=== PATIENT | female | born 1940 | race Caucasian/White ===

== ENCOUNTER → 2016-12-23 | Outpatient (CLI) | payer MEDICARE, OTHER ==
--- NOTE | 2016-12-23 13:14 | BD ---
EXAMINATION TYPE: MG DEXA axial skeleton. DATE OF EXAM: 12/23/2016 11:26 AM COMPARISON: NONE CLINICAL HISTORY: Height: 63 Weight: 160.6 FRAX RISK QUESTIONS: Alcohol (3 or more units per day): NO Family History (Parent hip fracture): NO Glucocorticoids (More than 3mos): NO (Ex: prednisone, prednisolone, methylprednisolone, dexamethasone, and hydrocortisone). History of Fracture in Adulthood: YES Secondary Osteoporosis: 1. Type 1 Diabetes: NO 2. Hyperthyroidism: NO 3. Menopause before 45: NO 4. Malnutrition: NO 5. Chronic liver disease: NO Rheumatoid Arthritis: NO Current Tobacco Use: NO RISK FACTORS HISTORY OF: Hip Fracture (Right/Left): NO Spine Fracture: NO History of Wrist Fracture: NO Surgery to Spine/Hip(right/left)/Wrist (right/left): NO Family History of Osteoporosis: YES MOTHER Active: YES Diet low in dairy products/other sources of calcium: NO Postmenopausal woman: AGE 54 Lost more than 2 inches in height since high school: YES Frequent falls: NO Adrenal Insufficiency: NO MEDICATIONS: BLOOD PRESSURE, ZOCOR, CELEBREX, PRILOSEC Additional History: EXAM MEASUREMENTS: Bone mineral densitometry was performed using the [employer] System. Bone mineral density as measured about the Lumbar spine is: ----- L1-L4(G/cm2): 1.427 T Score Values are as follows: ----- L2: 2.1 ----- L3: 1.0 ----- L4: 1.7 ----- L1-L4: 2.1 Bone mineral density has: DECREASED -1.1 % since study of: 01.24.2014 Bone mineral density about the R hip (g/cm2): 0.881 Bone mineral density about the L hip (g/cm2): 0.845 T Score values are as follows: -----R Neck: -1.1 -----L Neck: -1.4 -----R Intertrochanter: -1.0 -----L Intertrochanter: -0.9 Bone mineral density has: INCREASED 0.9 % since study of: 01.24.2014 IMPRESSION: Osteopenia (T Score between -2.5 and -1 as noted by T score values There is slightly increased risk of fracture and the patient may be considered for treatment. Re-Screen 1-2 years. Bone density has improved 0.9% from 2014 within the bilateral hips. Bone density has diminished 1.1% within the lumbar spine from 2014 NOTE: T-SCORE=SD OF THE YOUNG ADULT MEAN.
--- NOTE | 2016-12-26 09:12 | MM ---
Reason for exam: screening (asymptomatic). Last mammogram was performed 1 year and 4 months ago. History: Patient is postmenopausal, has history of endometrial cancer at age 60, and had first child at age 33. Family history of breast cancer in mother at age 70. Physical Findings: A clinical breast exam by your physician is recommended on an annual basis and results should be correlated with mammographic findings. MG Screening Mammo w CAD Bilateral CC and MLO view(s) were taken. Prior study comparison: August 20, 2015, bilateral MG screening mammo w CAD. May 02, 2014, bilateral MG screening mammo w CAD. There are scattered fibroglandular densities. There is chronic nodularity in the left breast. No significant changes when compared with prior studies. ASSESSMENT: Benign, BI-RAD 2 RECOMMENDATION: Routine screening mammogram of both breasts in 1 year.
== END | disposition home or self-care (01) ==
LOC: RADMAMWWP 10:42
PROVIDERS: ATTEND Obstetrics & Gynecology
DX: Z12.31 Encounter for screening mammogram for malignant neoplasm of breast (principal); M85.80 Other specified disorders of bone density and structure, unspecified site
CPT/HCPCS: 77080; G0202

== ENCOUNTER → 2017-09-21 | Outpatient (CLI) | payer MEDICARE, OTHER ==
[2017-09-21 09:52] LABS: ALT 40 U/L (9-52); AST 30 U/L (14-36); Alkaline Phosphatase 68 U/L (38-126); Anion Gap 10 mmol/L; Blood Urea Nitrogen 23 mg/dL (7-17); Calcium 10.3 mg/dL (8.4-10.2); Carbon Dioxide 26 mmol/L (22-30); Chloride 102 mmol/L (98-107); Glucose 109 mg/dL (74-99); Non-African American GFR(MDRD) 52 (>60 ml/min/1.73 sqM); Potassium 4.3 mmol/L (3.5-5.1); Sodium 138 mmol/L (137-145); Total Bilirubin 0.3 mg/dL (0.2-1.3); Total Protein 7.7 g/dL (6.3-8.2)
== END | disposition home or self-care (01) ==
LOC: LABWHC1 08:53
PROVIDERS: ATTEND Internal Medicine Endocrinology, Diabetes & Metabolism
DX: E05.90 Thyrotoxicosis, unspecified without thyrotoxic crisis or storm (principal); E21.2 Other hyperparathyroidism; Z86.39 Personal history of other endocrine, nutritional and metabolic disease
CPT/HCPCS: 36415; 80053; 82306; 83970; 84439; 84443; 84445; 84480

== ENCOUNTER → 2017-09-27 | Outpatient (CLI) | payer MEDICARE, OTHER ==
--- NOTE | 2017-09-28 10:42 | NM ---
EXAMINATION TYPE: NM thyroid image w uptake DATE OF EXAM: 09/28/2017 COMPARISON: 09/04/2017 and 01/31/2014 thyroid ultrasound. Parathyroid scan dated 01/31/2014. HISTORY: 1.4 cm solid right thyroid nodule on the exam of 09/04/2017 similar in size to the prior exa m of 01/31/2014. TECHNIQUE: Thyroid iodine uptake is calculated and images performed after the oral administration of 314 uCi 1-123 Capsule. FINDINGS: There is normal distribution of activity throughout the gland. The 4 hour iodine uptake is calculated at 2% (normal range 8-14%). The 24-hour iodine uptake is calculated at 3.1% (normal range 15-35%). No areas of focal areas of photopenia or increased uptake are appreciated. Glandular uptak e is homogeneous. IMPRESSION: Diffusely abnormal decreased thyroid uptake at both 4 and 24 hours relating to either hyp othyroidism, thyroiditis, or infarction is hormone depression. Correlate with medication use.
== END | disposition home or self-care (01) ==
LOC: RADNMMAIN 08:34
PROVIDERS: ATTEND Internal Medicine Endocrinology, Diabetes & Metabolism
DX: E05.90 Thyrotoxicosis, unspecified without thyrotoxic crisis or storm (principal)
CPT/HCPCS: 78014; A9516

== ENCOUNTER → 2017-10-09 | Outpatient (CLI) | payer MEDICARE, OTHER | END | disposition home or self-care (01) | LOC: LABWHC1 14:31 | PROVIDERS: ATTEND Internal Medicine Endocrinology, Diabetes & Metabolism | DX: E05.90 Thyrotoxicosis, unspecified without thyrotoxic crisis or storm (principal) | CPT/HCPCS: 36415; 84439; 84443; 84480 ==

== ENCOUNTER → 2017-12-28 | Outpatient (CLI) | payer MEDICARE, OTHER ==
[2017-12-28 16:16] LABS: ALT 25 U/L (9-52); AST 25 U/L (14-36); Albumin 4.3 g/dL (3.5-5.0); Alkaline Phosphatase 78 U/L (38-126); Anion Gap 12 mmol/L; Blood Urea Nitrogen 20 mg/dL (7-17); Calcium 10.2 mg/dL (8.4-10.2); Carbon Dioxide 28 mmol/L (22-30); Chloride 97 mmol/L (98-107); Glucose 128 mg/dL (74-99); Potassium 3.9 mmol/L (3.5-5.1); Sodium 137 mmol/L (137-145); Total Bilirubin 0.4 mg/dL (0.2-1.3); Total Protein 7.5 g/dL (6.3-8.2)
[2017-12-28 16:32] LABS: T4, Free (Free Thyroxine) 1.05 ng/dL (0.78-2.19)
[2017-12-29 01:02] LABS: Parathyroid Hormone Intact 83.9 pg/mL (14.0-72.0)
== END | disposition home or self-care (01) ==
LOC: LABWHC1 15:33
PROVIDERS: ATTEND Internal Medicine Endocrinology, Diabetes & Metabolism
DX: E05.90 Thyrotoxicosis, unspecified without thyrotoxic crisis or storm (principal); Z86.39 Personal history of other endocrine, nutritional and metabolic disease
CPT/HCPCS: 36415; 80053; 82306; 83970; 84439; 84443; 84480; 86376

== ENCOUNTER → 2018-04-26 | Outpatient (CLI) | payer MEDICARE, OTHER ==
--- NOTE | 2018-04-30 08:05 | MM ---
Reason for exam: screening (asymptomatic). Last mammogram was performed 1 year and 4 months ago. History: Patient is postmenopausal, has history of endometrial cancer at age 60, and had first child at age 33. Family history of breast cancer in mother at age 70. Physical Findings: A clinical breast exam by your physician is recommended on an annual basis and results should be correlated with mammographic findings. MG 3D Screening Mammo W/Cad Bilateral CC and MLO view(s) were taken. Prior study comparison: December 23, 2016, bilateral MG screening mammo w CAD. August 20, 2015, bilateral MG screening mammo w CAD. There are scattered fibroglandular densities. There is chronic nodularity in the left breast. Scattered bilateral densities on tomosynthesis appear negative. This finding is changed when compared with previous exams. ASSESSMENT: Probably benign, BI-RAD 3 RECOMMENDATION: Follow-up diagnostic mammogram of both breasts in 6 months.
== END | disposition home or self-care (01) ==
LOC: RADMAMWWP 12:58
PROVIDERS: ATTEND Obstetrics & Gynecology
DX: Z12.31 Encounter for screening mammogram for malignant neoplasm of breast (principal)
CPT/HCPCS: 77063; 77067

== ENCOUNTER → 2018-09-01 | Outpatient (CLI) | payer MEDICARE, OTHER ==
[2018-09-01 09:38] LABS: Albumin 3.9 g/dL (3.5-5.0); Calcium 10.2 mg/dL (8.4-10.2); Potassium 4.1 mmol/L (3.5-5.1); Total Bilirubin 0.4 mg/dL (0.2-1.3); Total Protein 7.1 g/dL (6.3-8.2)
[2018-09-01 09:54] LABS: T4, Free (Free Thyroxine) 1.18 ng/dL (0.78-2.19)
[2018-09-01 17:04] LABS: Vitamin D 25 Hydroxy 45.8 ng/mL (30.0-100.0)
[2018-09-01 17:12] LABS: Parathyroid Hormone Intact 113.5 pg/mL (14.0-72.0)
== END | disposition home or self-care (01) ==
LOC: LABWHC1 08:19
PROVIDERS: ATTEND Internal Medicine Endocrinology, Diabetes & Metabolism
DX: E05.90 Thyrotoxicosis, unspecified without thyrotoxic crisis or storm (principal); Z86.39 Personal history of other endocrine, nutritional and metabolic disease
CPT/HCPCS: 36415; 80053; 82306; 83970; 84439; 84443

== ENCOUNTER → 2018-10-29 | Outpatient (CLI) | payer MEDICARE, OTHER ==
--- NOTE | 2018-10-30 07:40 | MM ---
Reason for exam: follow-up at short interval from prior study. Last mammogram was performed 6 months ago. History: Patient is postmenopausal, has history of endometrial cancer at age 60, and had first child at age 33. Family history of breast cancer in mother at age 70. Physical Findings: Nurse did not find any significant physical abnormalities on exam. MG 3D Diag Mammo W/Cad [facility] Bilateral CC and MLO view(s) were taken. Prior study comparison: April 26, 2018, bilateral MG 3d screening mammo w/cad. December 23, 2016, bilateral MG screening mammo w CAD. There are scattered fibroglandular densities. Previous mammotome biopsy in the left breast. No significant new findings when compared with previous films. These results were verbally communicated with the patient and result sheet given to the patient on 10/29/18. ASSESSMENT: Benign, BI-RAD 2 RECOMMENDATION: Routine screening mammogram of both breasts in 1 year.
== END | disposition home or self-care (01) ==
LOC: RADMAMWWP 14:17
PROVIDERS: ATTEND Obstetrics & Gynecology
DX: R92.8 Other abnormal and inconclusive findings on diagnostic imaging of breast (principal)
CPT/HCPCS: 77066; G0279; 77062

== ENCOUNTER → 2019-02-15 | Outpatient (CLI) | payer MEDICARE ==
[2019-02-15 14:20] LABS: Albumin 4.2 g/dL (3.5-5.0); Calcium 10.8 mg/dL (8.4-10.2); Potassium 3.8 mmol/L (3.5-5.1); Total Bilirubin 0.5 mg/dL (0.2-1.3); Total Protein 7.4 g/dL (6.3-8.2)
[2019-02-15 14:33] LABS: T4, Free (Free Thyroxine) 1.31 ng/dL (0.78-2.19)
--- NOTE | 2019-02-15 15:05 | US ---
EXAMINATION TYPE: US thyroid st tissue head/neck DATE OF EXAM: 02/15/2019 COMPARISON: Previous exam 09/04/2017 CLINICAL HISTORY: E04.1 NONTOXIC SINGLE THYROID NODULE. Follow up nodule. No thyroid meds. GLAND SIZE: Right Lobe: 3.7 x 1.7 x 1.9 cm Overall Parenchyma: homogenous Left Lobe: 4.8 x 1.5 x 1.1 cm Overall Parenchyma: homogeneous Isthmus Thickness: 0.7 cm NODULES RIGHT: # of nodules measured on right: 1. 1.4 x 1.2 x 1.2 cm isoechoic solid nodule at the mid pole with well-defined margins. This nodul e is tall as wide and shows intranodular vascularity. Prior size: 1.4 x 1.2 x 1.1 cm LEFT: # of nodules measured on left: 0 ISTHMUS: # of nodules measured in the isthmus: 1 1. 0.5 X 0.5 x 0.4 cm hypoechoic nodule at the left lateral pole with well-defined margins. This no dule is wider than tall and shows no intranodular vascularity. Prior size: Not on previous Bilateral neck scanned, no evidence of lymphadenopathy. Cystic appearing lesion visualized posterior to left thyroid lobe = 0.6 x 0.4 x 0.4 cm IMPRESSION: Dominant nodule is stable in size. Subcentimeter foci noted have developed in the interval.
[2019-02-15 18:56] LABS: Parathyroid Hormone Intact 49.4 pg/mL (14.0-72.0)
[2019-02-15 19:05] LABS: Vitamin D 25 Hydroxy 40.5 ng/mL (30.0-100.0)
== END ==
LOC: RADUSWWP 11:51
PROVIDERS: ATTEND Internal Medicine Endocrinology, Diabetes & Metabolism
DX: E04.1 Nontoxic single thyroid nodule (principal); E05.90 Thyrotoxicosis, unspecified without thyrotoxic crisis or storm; Z86.39 Personal history of other endocrine, nutritional and metabolic disease
CPT/HCPCS: 76536; 80053; 82306; 83970; 84439; 84443; 84480

== ENCOUNTER → 2019-08-01 | Outpatient (CLI) | payer MEDICARE ==
[2019-08-01 17:41] LABS: African American GFR (CKD) 55.3 (60.0-200.0); Albumin 4.4 g/dL (3.80-4.90); Anion Gap 8.7 mmol/L (4.00-12.00); BUN/Creat Ratio 16.36 Ratio (12.00-20.00); Calcium 10.2 mg/dL (8.7-10.3); Carbon Dioxide 27.3 mmol/L (21.6-31.8); Globulin 2.2 g/dL (1.6-3.3); Potassium 3.7 mmol/L (3.5-5.5); Total Bilirubin 0.4 mg/dL (0.2-1.2); Total Protein 6.6 g/dL (6.2-8.2)
[2019-08-01 17:44] LABS: Vitamin D 25 Hydroxy 32.6 ng/mL (30.0-100.0)
[2019-08-01 17:49] LABS: T4, Free (Free Thyroxine) 1.3 ng/dL (0.80-1.80)
== END | disposition home or self-care (01) ==
LOC: LABWHC1 09:45
PROVIDERS: ATTEND Internal Medicine Endocrinology, Diabetes & Metabolism
DX: E04.2 Nontoxic multinodular goiter (principal); E83.52 Hypercalcemia; Z86.39 Personal history of other endocrine, nutritional and metabolic disease
CPT/HCPCS: 36415; 80053; 82306; 83970; 84439; 84443

== ENCOUNTER → 2019-12-19 | Outpatient (CLI) | payer MEDICARE ==
--- NOTE | 2019-12-19 11:00 | BD ---
EXAMINATION TYPE: Axial Bone Density DATE OF EXAM: 12/19/2019 COMPARISON: 12.23.2016 CLINICAL HISTORY: 79 YR OLD FEMALE.....ICD-10 CODE: M89.9 DISORDER OF BONE Height: 61.9 Weight: 160 FRAX RISK QUESTIONS: History of Fracture in Adulthood: YES HYPERPARATHYROID, YES RISK FACTORS HISTORY OF: HX OF FINGER FX...> 49 YRS OLD Family History of Osteoporosis: YES, MOTHER NO HIP FX Postmenopausal woman: YES, AT AGE 54 Lost more than 2 inches in height since high school: Hyperparathyroidism: YES, REMOVER 3.5 OF THE 2013 Adrenal Insufficiency: NO MEDICATIONS: Additional Medications: BP MEDS, REFLUX MEDS, STATIN FOR CHOLESTEROL, VIT D Additional History: REFLUX, CHOLESTEROL, HYPERTENSION, SCOLIOSIS, BILAT TOTAL KNEES, ARTHRITIS EXAM MEASUREMENTS: Bone mineral densitometry was performed using the [employer] System. Bone mineral density as measured about the Lumbar spine is: ----- L1-L4(G/cm2): 1.726 T Score Values are as follows: ----- L1: 6.2 ----- L2: 3.6 ----- L3: 3.2 ----- L4: 5.0 ----- L1-L4: 4.6 Bone mineral density has: Increased 21.8% since study of: 12.23.2016 Bone mineral density about the R hip (g/cm2): 0.928 Bone mineral density about the L hip (g/cm2): 0.939 T Score values are as follows: -----R Neck: -1.1 -----L Neck: -1.2 -----R Total: -0.6 -----L Total: -0.5 Bone mineral density has: Increased 2.6% since study of: 12.23.2016 FRAX%s: THERE IS A 17.6% CHANCE FOR A MAJOR OSTEOPOROTIC FX AND A 3.2% FOR HIP.....PROBABILITY FOR FX IN 10 YRS TIME IMPRESSION: Osteopenia (T Score between -2.5 and -1). There is slightly increased risk of fracture and the patient may be considered for treatment. Re-Screen 2-5 years. NOTE: T-SCORE=SD OF THE YOUNG ADULT MEAN.
--- NOTE | 2019-12-20 11:45 | MM ---
Reason for exam: screening (asymptomatic). Last mammogram was performed 1 year and 2 months ago. History: Patient is postmenopausal, has history of endometrial cancer at age 60, and had first child at age 33. Family history of breast cancer in mother at age 70. Physical Findings: A clinical breast exam by your physician is recommended on an annual basis and results should be correlated with mammographic findings. MG 3D Screening Mammo W/Cad Bilateral CC and MLO view(s) were taken. Prior study comparison: October 29, 2018, bilateral MG 3d diag mammo w/cad [facility]. April 26, 2018, bilateral MG 3d screening mammo w/cad. The breast tissue is heterogeneously dense. This may lower the sensitivity of mammography. Benign appearing bilateral calcifications. There is chronic nodularity in the left breast. No significant changes when compared with prior studies. ASSESSMENT: Benign, BI-RAD 2 RECOMMENDATION: Routine screening mammogram of both breasts in 1 year.
== END | disposition home or self-care (01) ==
LOC: RADMAMWWP 08:09
PROVIDERS: ATTEND Obstetrics & Gynecology
DX: Z12.31 Encounter for screening mammogram for malignant neoplasm of breast (principal); M85.80 Other specified disorders of bone density and structure, unspecified site
CPT/HCPCS: 77063; 77067; 77080

== ENCOUNTER 2020-04-25 08:11 | Emergency (ER) | payer MEDICARE ==
[2020-04-25 08:19] VITALS: BP 137/83; PULSE 89; RESP 18; TEMP 98.9
--- NOTE | 2020-04-25 08:35 | ED ---
General Adult HPI - General Chief complaint: Skin/Abscess/Foreign Body Stated complaint: Rash Time Seen by Provider: 04/25/20 08:15 Source: patient, RN notes reviewed, old records reviewed Mode of arrival: ambulatory Limitations: no limitations - History of Present Illness Initial comments: 79-year-old female presents for evaluation of rash which began 2 days ago. Painful rash on the right buttock and posterior thigh. Patient denies fever or chills. She's had some mild nausea, headache which has resolved with Tylenol. Patient is otherwise quite healthy. At the time my evaluation she denies headache. She states the pain is tolerable she had taken a [place] yesterday evening which she had left over for some chronic back pain issues. She has an appointment to see her primary care physician in 2 days. - Related Data Previous Rx's Medication Instructions Recorded valACYclovir HCL [Valtrex] 1,000 mg PO Q12HR #14 tab 04/25/20 Allergies Allergy/AdvReac Type Severity Reaction Status Date / Time No Known Allergies Allergy Verified 04/25/20 08:19 Review of Systems ROS Statement: Those systems with pertinent positive or pertinent negative responses have been documented in the HPI. ROS Other: All systems not noted in ROS Statement are negative. Past Medical History Past Medical History: GERD/Reflux, Hypertension Additional Past Medical History / Comment(s): "parathyroid condition" History of Any Multi-Drug Resistant Organisms: None Reported Past Surgical History: Cholecystectomy, Hysterectomy, Joint Replacement Additional Past Surgical History / Comment(s): bilateral knees, partial removal of parathyroid Past Psychological History: Anxiety, Depression Smoking Status: Never smoker Past Alcohol Use History: None Reported Past Drug Use History: None Reported General Exam Limitations: no limitations General appearance: alert, in no apparent distress Head exam: Present: atraumatic, normocephalic Eye exam: Present: normal appearance, PERRL ENT exam: Present: normal exam, mucous membranes moist Neck exam: Present: normal inspection, full ROM. Absent: tenderness, meningismus Respiratory exam: Present: normal lung sounds bilaterally. Absent: respiratory distress, wheezes Cardiovascular Exam: Present: regular rate, normal rhythm GI/Abdominal exam: Present: soft. Absent: distended, tenderness, guarding, rebound Extremities exam: Present: other (Vesicular rash on the right gluteal and mid posterior thigh consistent with herpes zoster. Does not cross midline.) Course Vital Signs 04/25/20 08:13 Temperature 98.9 F Pulse Rate 89 Respiratory 18 Rate Blood Pressure 137/83 O2 Sat by Pulse 96 Oximetry Medical Decision Making - Medical Decision Making 79-year-old with rash consistent with herpes zoster dermatomal distribution. Mild prodrome of headache and nausea, no vomiting, no fever. Patient is well- appearing without additional complaints the time my evaluation. She started on Valtrex, she has [place] at home for pain. She has an appointment with her primary care physician in 48 hours. Disposition Clinical Impression: Herpes zoster Disposition: HOME SELF-CARE Condition: Good Instructions (If sedation given, give patient instructions): Shingles (ED) Prescriptions: valACYclovir HCL [Valtrex] 1,000 mg PO Q12HR #14 tab Is patient prescribed a controlled substance at d/c from ED?: No Referrals: Ingrid Echols MD [Primary Care Provider] - 1-2 days Time of Disposition: 08:35
== END 2020-04-25 08:45 | disposition home or self-care (01) ==
LOC: EC 08:11
DX: B02.9 Zoster without complications (principal); R51 Headache; R11.0 Nausea; Z96.9 Presence of functional implant, unspecified
CPT/HCPCS: 99283

== ENCOUNTER → 2020-04-27 | Outpatient (CLI) | payer MEDICARE ==
--- NOTE | 2020-04-27 15:03 | CT ---
EXAMINATION TYPE: CT brain wo con DATE OF EXAM: 04/27/2020 COMPARISON: 12/03/2011 HISTORY: 79-year-old female Unsteady gait and confusion. TECHNIQUE: Examination was done in axial plane without intravenous contrast. Coronal and sagittal r econstructions performed. CT DLP: 1108.4 mGycm Automated exposure control for dose reduction was used. FINDINGS: There is no evidence of acute intracranial hemorrhage, acute ischemic changes, mass, mass-effect, or extra-axial fluid collection. There is no effacement of cerebral sulci or basal subarachnoid cister ns. There is no hydrocephalus. There is no midline shift. [place]-white matter distinction is preserv ed. Severe confluent white matter hypodensities in both cerebral hemispheres, progressed from 2011. Ather osclerotic calcifications within the bilateral carotid siphons. 5 mm nodular prominence at the distal M1 segment left MCA. Paranasal sinuses and mastoid air cells well pneumatized. Orbits and globes are intact. IMPRESSION: 1. Severe confluent burden of chronic small vessel ischemic disease. No acute intracranial abnormalit y seen. 2. A 5 mm nodular prominence at the distal M1 segment left MCA. Nonemergent follow-up MR angiography [place] recommended to exclude intracranial aneurysm.
--- NOTE | 2020-04-28 07:29 | US ---
EXAMINATION TYPE: US carotid duplex BILAT DATE OF EXAM: 04/27/2020 COMPARISON: CLINICAL HISTORY: R41.0 CONFUSION,R51 HEADACHE. EXAM MEASUREMENTS: RIGHT: Peak Systolic Velocity (PSV) cm/sec ----- Right CCA: 56.4 ----- Right ICA: 59.8 ----- Right ECA: 94.7 ICA/CCA ratio: 1.1 RIGHT: End Diastole cm/sec ----- Right CCA: 10.1 ----- Right ICA: 13.6 ----- Right ECA: 11.4 LEFT: Peak Systolic Velocity (PSV) cm/sec ----- Left CCA: 62.5 ----- Left ICA: 49.4 ----- Left ECA: 64.2 ICA/CCA ratio: 0.8 LEFT: End Diastole cm/sec ----- Left CCA: 13.6 ----- Left ICA: 13.6 ----- Left ECA: 9.2 VERTEBRALS (direction of flow): Right Vertebral: Antegrade Left Vertebral: Antegrade Rhythm: Normal Mild to moderate mixed intimal wall changes are noted at bilateral carotid bifurcation, but PSV is wn l bilaterally. Higher resistant ICA waveform is noted bilaterally and is suggestive of distal cerebra l bed disease. Incidental Finding of right thyroid nodule is noted. IMPRESSION: No evidence for hemodynamically significant stenosis of the internal carotid arteries. Criteria for Assigning % of Stenosis / Diameter reduction (Estimation based on the indirect measurements of the internal carotid artery velocities (ICA PSV). 1. Normal (no stenosis)=ICA PSV < 125 cm/s: ratio < 2.0: ICA EDV<40 cm/s. 2. Less than 50% stenosis=ICA PSV < 125 cm/s: ratio < 2.0: ICA EDV<40 cm/s. 3. 50 to 69% stenosis=ICA PSV of 125 to 230 cm/s: ration 2.0 ? 4.0: ICA EDV 40-100 cm/s. 4. Greater than 70% stenosis to near occlusion= ICA PSV > 230 cm/s: ratio > 4.0: ICA EDV > 100 cm/s. 5. Near occlusion= ICA PSV velocities may be low or undetectable: variable ratio and ICA EDV. 6. Total occlusion=unable to detect flow.
== END | disposition home or self-care (01) ==
LOC: RADCTMAIN 14:26
PROVIDERS: ATTEND Family Medicine
DX: I67.82 Cerebral ischemia (principal); G93.89 Other specified disorders of brain; R51 Headache; Z88.0 Allergy status to penicillin; Z88.2 Allergy status to sulfonamides; Z91.018 Allergy to other foods
CPT/HCPCS: 70450; 93880

== ENCOUNTER 2020-04-28 11:11 | Observation (INO) | payer MEDICARE ==
[2020-04-28] MEDS ORDERED: SODIUM CHLORIDE 0.9% 500 ML 500 ML IV ONE (11:40)
--- NOTE | 2020-04-28 11:49 | ED ---
General Adult HPI - General Chief complaint: Recheck/Abnormal Lab/Rx Stated complaint: low sodium/mental status change Time Seen by Provider: 04/28/20 11:11 Source: patient, family, RN notes reviewed, old records reviewed Mode of arrival: wheelchair Limitations: no limitations - History of Present Illness Initial comments: This is an 79-year-old female who presents emergency department after 5 day history of having some altered mental status. Patient was also having some lower back pain and came into the emergency department on Monday and was genoveva gnosed with shingles. Patient started on Valtrex and Medrol Dosepak. Patient continued to have some episodes of altered mental status according to the daughter and so he followed up with a primary medical care doctor. stated that she did a carotid Doppler as well as as a CT of the brain neither showed any explanation for her acute symptoms. Recent also some blood work done and showed a low sodium as well as a low magnesium and the doctor wanted the patient admitted the hospital for further evaluation of her altered mental status. Patient denies any chest pain difficulty breathing shortest breath patient denies any recent fever chills or cough. Patient denies any abdominal pain hazel ent with any nausea or vomiting however she does have episodes of diarrhea which is chronic on standing problem. Patient denies any dysuria hematuria urinary frequency. Patient was unable to operate a remote for the TV recently and other simple tasks according to the family member - Related Data Home Medications Medication Instructions Recorded Confirmed Celecoxib [CeleBREX] 200 mg PO DAILY PRN 04/28/20 04/28/20 Cholecalciferol [Vitamin D3 (25 1,000 unit PO DAILY 04/28/20 04/28/20 Mcg = 1000 Iu)] Citalopram Hydrobromide 20 mg PO DAILY 04/28/20 04/28/20 [Citalopram HBr] HYDROcodone/APAP 5-325MG [[employer] 1 tab PO TID PRN 04/28/20 04/28/20 5-325] Loperamide [Imodium] 2 mg PO DAILY 04/28/20 04/28/20 Multivitamins, Thera [Multivitamin 1 tab PO DAILY 04/28/20 04/28/20 (formulary)] Olmesartan/Hydrochlorothiazide 1 tab PO DAILY 04/28/20 04/28/20 [Olmesartan/Hydrochlorothiazide 40-25 MG] Omeprazole 20 mg PO DAILY 04/28/20 04/28/20 Simvastatin [Zocor] 10 mg PO HS 04/28/20 04/28/20 clonazePAM [KlonoPIN] 0.25 - 0.5 mg PO BID 04/28/20 04/28/20 methylPREDNISolone [Medrol Dose See Taper PO DIRECTED 04/28/20 04/28/20 Pack] valACYclovir HCL [Valtrex] 1,000 mg PO Q12H 04/28/20 04/28/20 Allergies Allergy/AdvReac Type Severity Reaction Status Date / Time Sulfa (Sulfonamide Allergy Rash/Hives Verified 04/28/20 13:37 Antibiotics) Penicillins AdvReac Diarrhea Verified 04/28/20 13:37 Review of Systems ROS Statement: Those systems with pertinent positive or pertinent negative responses have been documented in the HPI. ROS Other: All systems not noted in ROS Statement are negative. Past Medical History Past Medical History: GERD/Reflux, Hypertension Additional Past Medical History / Comment(s): "parathyroid condition" History of Any Multi-Drug Resistant Organisms: None Reported Past Surgical History: Cholecystectomy, Hysterectomy, Joint Replacement Additional Past Surgical History / Comment(s): bilateral knees, partial removal of parathyroid Past Psychological History: Anxiety, Depression Smoking Status: Never smoker Past Alcohol Use History: None Reported Past Drug Use History: None Reported General Exam - General Exam Comments Initial Comments: GENERAL: Patient is well-developed and well-nourished. Patient is nontoxic and well- hydrated and is in no acute distress. ENT: Neck is soft and supple. No significant lymphadenopathy is noted. Oropharynx is clear. Moist mucous membranes. Neck has full range of motion without eliciting any pain. EYES: The sclera were anicteric and conjunctiva were pink and moist. Extraocular movements were intact and pupils were equal round and reactive to light. Eyelids were unremarkable. PULMONARY: Unlabored respirations. Good breath sounds bilaterally. No audible rales rhonchi or wheezing was noted. CARDIOVASCULAR: There is a regular rate and rhythm without any murmurs gallops or rubs. ABDOMEN: Soft and nontender with normal bowel sounds. SKIN: Skin is clear with no lesions or rashes and otherwise unremarkable. NEUROLOGIC: Patient is alert and oriented x3. Cranial nerves II through XII are grossly intact. Motor and sensory are also intact. Normal speech, volume and content. Symmetrical smile. MUSCULOSKELETAL: Normal extremities with adequate strength and full range of motion. No lower extremity swelling or edema. No calf tenderness. LYMPHATICS: No significant lymphadenopathy is noted PSYCHIATRIC: Normal psychiatric evaluation. Limitations: no limitations Course Vital Signs 04/28/20 04/28/20 11:13 12:57 Temperature 98.2 F 97.8 F Pulse Rate 100 89 Respiratory 18 16 Rate Blood Pressure 143/77 119/95 O2 Sat by Pulse 97 96 Oximetry Medical Decision Making - Medical Decision Making EKG shows normal sinus rhythm at 86 bpm IN interval is 184 QRS is 72 QT interval 370 QTC is 442 per patient's EKG shows no ST segment elevation or depression. Chest x-ray shows no acute abnormality. I replace magnesium and sodium - Lab Data Result diagrams: 04/28/20 12:00 04/28/20 12:00 Lab Results 04/28/20 04/28/20 04/28/20 Range/Units 12:00 12:00 12:00 WBC 8.2 (3.8-10.6) k/uL RBC 4.66 (3.80-5.40) m/uL Hgb 14.2 (11.4-16.0) gm/dL Hct 39.9 (34.0-46.0) % MCV 85.7 (80.0-100.0) fL MCH 30.5 (25.0-35.0) pg MCHC 35.6 (31.0-37.0) g/dL RDW 12.8 (11.5-15.5) % Plt Count 431 (150-450) k/uL Neutrophils % 77 % Lymphocytes % 16 % Monocytes % 3 % Eosinophils % 2 % Basophils % 0 % Neutrophils # 6.3 (1.3-7.7) k/uL Lymphocytes # 1.3 (1.0-4.8) k/uL Monocytes # 0.3 (0-1.0) k/uL Eosinophils # 0.2 (0-0.7) k/uL Basophils # 0.0 (0-0.2) k/uL PT 10.1 (9.0-12.0) sec INR 1.0 (<1.2) APTT 24.8 (22.0-30.0) sec Sodium 127 L (137-145) mmol/L Potassium 3.6 (3.5-5.1) mmol/L Chloride 92 L (98-107) mmol/L Carbon Dioxide 24 (22-30) mmol/L Anion Gap 11 mmol/L BUN 17 (7-17) mg/dL Creatinine 0.89 (0.52-1.04) mg/dL Est GFR (CKD-EPI)AfAm 71 (>60 ml/min/1.73 sqM) Est GFR (CKD-EPI)NonAf 61 (>60 ml/min/1.73 sqM) Glucose 159 H (74-99) mg/dL POC Glucose (mg/dL) (75-99) mg/dL POC Glu [employer] ID Calcium 10.1 (8.4-10.2) mg/dL Magnesium (1.6-2.3) mg/dL Total Bilirubin 0.6 (0.2-1.3) mg/dL AST 44 H (14-36) U/L ALT 38 H (4-34) U/L Alkaline Phosphatase 67 (38-126) U/L Troponin I (0.000-0.034) ng/mL Total Protein 7.2 (6.3-8.2) g/dL Albumin 4.2 (3.5-5.0) g/dL Urine Color Urine Appearance (Clear) Urine pH (5.0-8.0) Ur Specific [place] (1.001-1.035) Urine Protein (Negative) Urine Glucose (UA) (Negative) Urine Ketones (Negative) Urine Blood (Negative) Urine Nitrite (Negative) Urine Bilirubin (Negative) Urine Urobilinogen (<2.0) mg/dL Ur Leukocyte Esterase (Negative) Urine WBC (0-5) /hpf Ur Squamous Epith Cells (0-4) /hpf Urine Bacteria (None) /hpf Urine Opiates Screen (NotDetected) Ur Oxycodone Screen (NotDetected) Urine Methadone Screen (NotDetected) Ur Propoxyphene Screen (NotDetected) Ur Barbiturates Screen (NotDetected) U Tricyclic Antidepress (NotDetected) Ur Phencyclidine Scrn (NotDetected) Ur Amphetamines Screen (NotDetected) U Methamphetamines Scrn (NotDetected) U Benzodiazepines Scrn (NotDetected) Urine Cocaine Screen (NotDetected) U Marijuana (THC) Screen (NotDetected) 04/28/20 04/28/20 04/28/20 Range/Units 12:00 12:00 12:08 WBC (3.8-10.6) k/uL RBC (3.80-5.40) m/uL Hgb (11.4-16.0) gm/dL Hct (34.0-46.0) % MCV (80.0-100.0) fL MCH (25.0-35.0) pg MCHC (31.0-37.0) g/dL RDW (11.5-15.5) % Plt Count (150-450) k/uL Neutrophils % % Lymphocytes % % Monocytes % % Eosinophils % % Basophils % % Neutrophils # (1.3-7.7) k/uL Lymphocytes # (1.0-4.8) k/uL Monocytes # (0-1.0) k/uL Eosinophils # (0-0.7) k/uL Basophils # (0-0.2) k/uL PT (9.0-12.0) sec INR (<1.2) APTT (22.0-30.0) sec Sodium (137-145) mmol/L Potassium (3.5-5.1) mmol/L Chloride (98-107) mmol/L Carbon Dioxide (22-30) mmol/L Anion Gap mmol/L BUN (7-17) mg/dL Creatinine (0.52-1.04) mg/dL Est GFR (CKD-EPI)AfAm (>60 ml/min/1.73 sqM) Est GFR (CKD-EPI)NonAf (>60 ml/min/1.73 sqM) Glucose (74-99) mg/dL POC Glucose (mg/dL) (75-99) mg/dL POC Glu [employer] ID Calcium (8.4-10.2) mg/dL Magnesium 1.3 L (1.6-2.3) mg/dL Total Bilirubin (0.2-1.3) mg/dL AST (14-36) U/L ALT (4-34) U/L Alkaline Phosphatase (38-126) U/L Troponin I <0.012 (0.000-0.034) ng/mL Total Protein (6.3-8.2) g/dL Albumin (3.5-5.0) g/dL Urine Color Yellow Urine Appearance Clear (Clear) Urine pH 6.5 (5.0-8.0) Ur Specific [place] 1.009 (1.001-1.035) Urine Protein 1+ H (Negative) Urine Glucose (UA) Negative (Negative) Urine Ketones Negative (Negative) Urine Blood Negative (Negative) Urine Nitrite Negative (Negative) Urine Bilirubin Negative (Negative) Urine Urobilinogen <2.0 (<2.0) mg/dL Ur Leukocyte Esterase Small H (Negative) Urine WBC 4 (0-5) /hpf Ur Squamous Epith Cells 1 (0-4) /hpf Urine Bacteria Rare H (None) /hpf Urine Opiates Screen Detected H (NotDetected) Ur Oxycodone Screen Not Detected (NotDetected) Urine Methadone Screen Not Detected (NotDetected) Ur Propoxyphene Screen Not Detected (NotDetected) Ur Barbiturates Screen Not Detected (NotDetected) U Tricyclic Antidepress Not Detected (NotDetected) Ur Phencyclidine Scrn Not Detected (NotDetected) Ur Amphetamines Screen Not Detected (NotDetected) U Methamphetamines Scrn Not Detected (NotDetected) U Benzodiazepines Scrn Not Detected (NotDetected) Urine Cocaine Screen Not Detected (NotDetected) U Marijuana (THC) Screen Not Detected (NotDetected) 04/28/20 Range/Units 12:52 WBC (3.8-10.6) k/uL RBC (3.80-5.40) m/uL Hgb (11.4-16.0) gm/dL Hct (34.0-46.0) % MCV (80.0-100.0) fL MCH (25.0-35.0) pg MCHC (31.0-37.0) g/dL RDW (11.5-15.5) % Plt Count (150-450) k/uL Neutrophils % % Lymphocytes % % Monocytes % % Eosinophils % % Basophils % % Neutrophils # (1.3-7.7) k/uL Lymphocytes # (1.0-4.8) k/uL Monocytes # (0-1.0) k/uL Eosinophils # (0-0.7) k/uL Basophils # (0-0.2) k/uL PT (9.0-12.0) sec INR (<1.2) APTT (22.0-30.0) sec Sodium (137-145) mmol/L Potassium (3.5-5.1) mmol/L Chloride (98-107) mmol/L Carbon Dioxide (22-30) mmol/L Anion Gap mmol/L BUN (7-17) mg/dL Creatinine (0.52-1.04) mg/dL Est GFR (CKD-EPI)AfAm (>60 ml/min/1.73 sqM) Est GFR (CKD-EPI)NonAf (>60 ml/min/1.73 sqM) Glucose (74-99) mg/dL POC Glucose (mg/dL) 151 H (75-99) mg/dL POC Glu [employer] ID Donna Ruiz Calcium (8.4-10.2) mg/dL Magnesium (1.6-2.3) mg/dL Total Bilirubin (0.2-1.3) mg/dL AST (14-36) U/L ALT (4-34) U/L Alkaline Phosphatase (38-126) U/L Troponin I (0.000-0.034) ng/mL Total Protein (6.3-8.2) g/dL Albumin (3.5-5.0) g/dL Urine Color Urine Appearance (Clear) Urine pH (5.0-8.0) Ur Specific [place] (1.001-1.035) Urine Protein (Negative) Urine Glucose (UA) (Negative) Urine Ketones (Negative) Urine Blood (Negative) Urine Nitrite (Negative) Urine Bilirubin (Negative) Urine Urobilinogen (<2.0) mg/dL Ur Leukocyte Esterase (Negative) Urine WBC (0-5) /hpf Ur Squamous Epith Cells (0-4) /hpf Urine Bacteria (None) /hpf Urine Opiates Screen (NotDetected) Ur Oxycodone Screen (NotDetected) Urine Methadone Screen (NotDetected) Ur Propoxyphene Screen (NotDetected) Ur Barbiturates Screen (NotDetected) U Tricyclic Antidepress (NotDetected) Ur Phencyclidine Scrn (NotDetected) Ur Amphetamines Screen (NotDetected) U Methamphetamines Scrn (NotDetected) U Benzodiazepines Scrn (NotDetected) Urine Cocaine Screen (NotDetected) U Marijuana (THC) Screen (NotDetected) Disposition Clinical Impression: Hyponatremia, Hypomagnesemia, Altered mental status Disposition: ADMITTED IP TO THIS HOSP Referrals: Ingrid Echols MD [Primary Care Provider] - 1-2 days Time of Disposition: 14:10
[2020-04-28 12:17] LABS: Basophils % (A) 0 %; Eosinophils # (A) 0.2 k/uL (0-0.7); Eosinophils % (A) 2 %; HCT 39.9 % (34.0-46.0); HGB 14.2 gm/dL (11.4-16.0); Lymphocytes # (A) 1.3 k/uL (1.0-4.8); Lymphocytes % (A) 16 %; MCH 30.5 pg (25.0-35.0); MCHC 35.6 g/dL (31.0-37.0); MCV 85.7 fL (80.0-100.0); Mean Platelet Volume 7.2; Monocytes # (A) 0.3 k/uL (0-1.0); Monocytes % (A) 3 %; Neutrophils # (A) 6.3 k/uL (1.3-7.7); Neutrophils % (A) 77 %; Platelet Count 431 k/uL (150-450); RBC 4.66 m/uL (3.80-5.40); RDW 12.8 % (11.5-15.5); WBC 8.2 k/uL (3.8-10.6)
[2020-04-28 12:23] LABS: Appearance,Urine Clear (Clear); Bacteria,Urine Rare /hpf; Bilirubin,Urine Negative (Negative); Blood,Urine Negative (Negative); Color,Urine Yellow; Glucose,Urine (UA) Negative (Negative); Ketones,Urine Negative (Negative); Leukocyte Esterase,Urine Small (Negative); Nitrite,Urine Negative (Negative); PH, Urine 6.5 (5.0-8.0); Protein,Urine 1+ (Negative); Specific Gravity,Urine 1.009 (1.001-1.035); Squamous Epithelial Cell,Urine 1 /hpf (0-4); Urobilinogen,Urine <2.0 mg/dL (<2.0); WBC,Urine 4 /hpf (0-5)
[2020-04-28 12:31] LABS: Amphetamine Screen,Urine Not Detected (NotDetected); Barbiturate Screen,Urine Not Detected (NotDetected); Benzodiazepines Screen,Urine Not Detected (NotDetected); Cocaine Screen,Urine Not Detected (NotDetected); Methadone Screen, Urine Not Detected (NotDetected); Opiate Screen,Urine Detected (NotDetected); Oxycodone Screen, Urine Not Detected (NotDetected); Phencyclidine Screen,Urine Not Detected (NotDetected); Tricyclic Antidepressant,Urine Not Detected (NotDetected); Urn Cannabinoid Scrn Not Detected (NotDetected)
[2020-04-28 12:41] LABS: Albumin 4.2 g/dL (3.5-5.0); Calcium 10.1 mg/dL (8.4-10.2); Potassium 3.6 mmol/L (3.5-5.1); Total Bilirubin 0.6 mg/dL (0.2-1.3); Total Protein 7.2 g/dL (6.3-8.2)
[2020-04-28 12:54] LABS: Glucose,Whole Blood 151 mg/dL (75-99)
--- NOTE | 2020-04-28 13:02 | XR ---
EXAMINATION TYPE: XR chest 2V DATE OF EXAM: 04/28/2020 COMPARISON: 11/30/2012 HISTORY: Shortness of breath TECHNIQUE: Frontal and lateral views of the chest are obtained. FINDINGS: Scattered senescent parenchymal changes noted. Hyperinflation compatible with COPD. No evidence for infiltrate. No evidence for atelectasis. Heart size is stable. Mediastinal structures are stable and grossly unremarkable. No evidence for hilar prominence. Degenerative changes dorsal spine. IMPRESSION: 1. No evidence for acute pulmonary disease.
[2020-04-28 13:11] LABS: Partial Thromboplastin Time 24.8 sec (22.0-30.0); Prothrombin Time 10.1 sec (9.0-12.0)
[2020-04-28] MEDS ORDERED: SODIUM CHLORIDE 0.9% 1,000 ML IV ONE (14:10)
[2020-04-28] MEDS ORDERED: MELOXICAM 7.5 MG TAB PO PRN (14:14)
[2020-04-28] MEDS ORDERED: LOPERAMIDE 2 MG CAP PO PRN (14:14)
[2020-04-28] MEDS: MAGNESIUM SULFATE-D5W PMX 1 GM in DEXTROSE/WATER 1 100ML.BAG IVPB SCH ×2 (15:04→16:33)
[2020-04-28] MEDS: ACETAMINOPHEN TAB 325 MG TAB PO PRN (15:16)
--- NOTE | 2020-04-28 15:20 | P.HPIM ---
History of Present Illness 79-year-old pleasant female was sent in here because of altered mental status I was able to the patient as well as the family members patient is alert oriented 3 at this time. Patient's family brought her here to the hospital because of the primary care physician as him to go to the hospital for altered mental status and the patient family was told that patient will need an MRI and MRA. Patient had a CAT scan and carotid Doppler as an outpatient CAT scan of the head did not show any significant acute abnormality but did show some chronic microvascular ischemic changes and carotid Doppler is essentially within normal limits at these 2 tests were done as today. She doesn't have any focal weakness. But as per the family patient is bit confused. Upon further cushioning patient has been taking note: Regular basis for last few days because of her uncontrolled back pain. Patient does take Celebrex as well patient now doesn't know which medication she took last couple days patient is also on Klonopin which she did take yesterday. Patient is also hyponatremic at 127. Patient doesn't have any ataxia patient has a low stepping gait beyond that there is no abnormality in the gait either. My suspicion is low for several vascular accident patient has toxic and was metabolic encephalopathy from medications and maybe little bit of contribution from hyponatremia patient is on hydrochlorothiazide. Patient denied any fever chills dysuria no evidence of infection at this time no leukocytosis no fever, chest x-ray did not show any pneumonia urine is not impressive for urinary tract infection. Patient is also hypomagnesemic. Patient urine drug screen is positive for opiates because of the she is taking. Patient is presently not confused Review of Systems REVIEW OF SYSTEMS: CONSTITUTIONAL: No fever, no malaise, no fatigue. HEENT: No recent visual problems or hearing problems. Denied any sore throat. CARDIOVASCULAR: No chest pain, orthopnea, PND, no palpitations, no syncope. PULMONARY: No shortness of breath, no cough, no hemoptysis. GASTROINTESTINAL: No diarrhea, no nausea, no vomiting, no abdominal pain. NEUROLOGICAL: No headaches, no weakness, no numbness. HEMATOLOGICAL: Denies any bleeding or petechiae. GENITOURINARY: Denies any burning micturition, frequency, or urgency. MUSCULOSKELETAL/RHEUMATOLOGICAL: Denies any joint pain, swelling, or any muscle pain. ENDOCRINE: Denies any polyuria or polydipsia. The rest of the 14-point review of systems is negative. Past Medical History Past Medical History: Cancer, GERD/Reflux, Hyperlipidemia, Hypertension, Renal Disease, Vascular Disorder Additional Past Medical History / Comment(s): Pt diagnosed with shingelles 04/26/20, "parathyroid condition" with surgery, gastric ulcer, bronchitis, osteoporosis, chronic low back pain, scoliosis, uterine wall cancer with hysterectomy, "irregular heart beat occasionally", CKD per recent labwork as well as "pre-diabetes", occasional L ear tinnitis, veronica states recent Ct scan showed small vessel disease. History of Any Multi-Drug Resistant Organisms: None Reported Past Surgical History: Bladder Surgery, Cholecystectomy, Hysterectomy, Joint Replacement Additional Past Surgical History / Comment(s): Partial parathyroidectomy, bilateral total knee arthroplasties, cystocele, rectocele, colonoscopy. Past Anesthesia/Blood Transfusion Reactions: No Reported Reaction Smoking Status: Never smoker - Past Family History Father Additional Family Medical History / Comment(s): Heart valve disease Mother Family Medical History: Cancer, CVA/TIA, Hyperlipidemia, Hypertension Additional Family Medical History / Comment(s): Breast cancer. Medications and Allergies Home Medications Medication Instructions Recorded Confirmed Type Celecoxib [CeleBREX] 200 mg PO DAILY PRN 04/28/20 04/28/20 History Cholecalciferol [Vitamin D3 (25 1,000 unit PO DAILY 04/28/20 04/28/20 History Mcg = 1000 Iu)] Citalopram Hydrobromide 20 mg PO DAILY 04/28/20 04/28/20 History [Citalopram HBr] HYDROcodone/APAP 5-325MG [[employer] 1 tab PO TID PRN 04/28/20 04/28/20 History 5-325] Loperamide [Imodium] 2 mg PO DAILY 04/28/20 04/28/20 History Multivitamins, Thera [Multivitamin 1 tab PO DAILY 04/28/20 04/28/20 History (formulary)] Olmesartan/Hydrochlorothiazide 1 tab PO DAILY 04/28/20 04/28/20 History [Olmesartan/Hydrochlorothiazide 40-25 MG] Omeprazole 20 mg PO DAILY 04/28/20 04/28/20 History Simvastatin [Zocor] 10 mg PO HS 04/28/20 04/28/20 History clonazePAM [KlonoPIN] 0.25 - 0.5 mg PO BID 04/28/20 04/28/20 History methylPREDNISolone [Medrol Dose See Taper PO DIRECTED 04/28/20 04/28/20 History Pack] valACYclovir HCL [Valtrex] 1,000 mg PO Q12H 04/28/20 04/28/20 History Allergies Allergy/AdvReac Type Severity Reaction Status Date / Time Sulfa (Sulfonamide Allergy Rash/Hives Verified 04/28/20 13:37 Antibiotics) Penicillins AdvReac Diarrhea Verified 04/28/20 13:37 Physical Exam Vitals: Vital Signs Temp Pulse Resp BP Pulse Ox 04/28/20 12:57 97.8 F 89 16 119/95 96 04/28/20 11:13 98.2 F 100 18 143/77 97 Intake and Output 04/28/20 04/28/20 04/28/20 06:59 14:59 22:59 Other: Weight 74.389 kg 74.389 kg PHYSICAL EXAMINATION: GENERAL: The patient is alert and oriented x3, not in any acute distress. Well developed, well nourished. HEENT: Pupils are round and equally reacting to light. EOMI. No scleral icterus. No conjunctival pallor. Normocephalic, atraumatic. No pharyngeal erythema. No thyromegaly. CARDIOVASCULAR: S1 and S2 present. No murmurs, rubs, or gallops. PULMONARY: Chest is clear to auscultation, no wheezing or crackles. ABDOMEN: Soft, nontender, nondistended, normoactive bowel sounds. No palpable organomegaly. MUSCULOSKELETAL: No joint swelling or deformity. EXTREMITIES: No cyanosis, clubbing, or pedal edema. NEUROLOGICAL: Gross neurological examination did not reveal any focal deficits. Gait as mentioned above. SKIN: No rashes. Results CBC & Chem 7: 04/28/20 12:00 04/28/20 12:00 Labs: Abnormal Lab Results - Last 24 Hours (Table) 04/28/20 04/28/20 04/28/20 Range/Units 12:00 12:00 12:08 Sodium 127 L (137-145) mmol/L Chloride 92 L (98-107) mmol/L Glucose 159 H (74-99) mg/dL POC Glucose (mg/dL) (75-99) mg/dL Magnesium 1.3 L (1.6-2.3) mg/dL AST 44 H (14-36) U/L ALT 38 H (4-34) U/L Urine Protein 1+ H (Negative) Ur Leukocyte Esterase Small H (Negative) Urine Bacteria Rare H (None) /hpf Urine Opiates Screen Detected H (NotDetected) 04/28/20 Range/Units 12:52 Sodium (137-145) mmol/L Chloride (98-107) mmol/L Glucose (74-99) mg/dL POC Glucose (mg/dL) 151 H (75-99) mg/dL Magnesium (1.6-2.3) mg/dL AST (14-36) U/L ALT (4-34) U/L Urine Protein (Negative) Ur Leukocyte Esterase (Negative) Urine Bacteria (None) /hpf Urine Opiates Screen (NotDetected) Thrombosis Risk Factor Assmnt - Choose All That Apply Any of the Below Risk Factors Present?: Yes Each Factor Represents 1 point: Obesity (BMI >25) Other Risk Factors: Yes Each Risk Factor Represents 2 Points: Malignancy Each Risk Factor Represents 3 Points: Age 75 years or older Other congenital or acquired thrombophilia - If yes, enter type in comment: No Thrombosis Risk Factor Assessment Total Risk Factor Score: 6 Thrombosis Risk Factor Assessment Level: High Risk Assessment and Plan Plan: -Altered mental status: Secondary to toxic and metabolic encephalopathy my suspicion is low that patient has a 3 and several vascular accident. Although as per the request of the family and consult neurology. But I do not believe patient will need an MRI and an MRA at this time unless requested by neurologist. -Toxic encephalopathy from [employer] and Klonopin his will be discontinued patient will be started on Toradol for pain patient may benefit from either E occurred gabapentin for neuropathic pain from her shingles in the right buttock area. -There may be a competent of metabolic encephalopathy from hyponatremia which is again secondary to hydrochlorothiazide which was discontinued and patient was started on IV fluids next and-hypertension patient will be started on JUANA inhibitor. -Hyperlipidemia -Patient's shingles which appears to be healing at this time continue with Valtrex patient has shingles lesions on the right buttock area Hypogastrics present reflux disease DVT prophylaxis with subcutaneous heparin
[2020-04-28] MEDS: ATORVASTATIN 10 MG TAB PO SCH (21:51)
[2020-04-28] MEDS: valACYclovir HCL 1,000 MG TABLET PO SCH (21:51)
[2020-04-29] MEDS: LOSARTAN 50 MG TAB PO SCH ×2 (00:45→09:47)
[2020-04-29] MEDS: ACETAMINOPHEN TAB 325 MG TAB PO PRN ×2 (00:45→23:30)
[2020-04-29] MEDS: PANTOPRAZOLE 40 MG TABLET PO SCH (07:09)
[2020-04-29 08:26] LABS: Calcium 10.1 mg/dL (8.4-10.2); Magnesium 1.9 mg/dL (1.6-2.3)
[2020-04-29] MEDS ORDERED: LOSARTAN 50 MG TAB PO SCH (09:00)
[2020-04-29] MEDS: CITALOPRAM HYDROBROMIDE 20 MG TAB PO SCH (09:47)
[2020-04-29] MEDS: valACYclovir HCL 1,000 MG TABLET PO SCH ×2 (09:47→20:48)
[2020-04-29] MEDS: lisinopriL 20 MG TAB PO SCH (09:47)
[2020-04-29] MEDS: amLODIPine 5 MG TAB PO SCH (11:46)
--- NOTE | 2020-04-29 15:16 | P.CNNES ---
History of Present Illness Consult date: 04/29/20 Requesting physician: Cachoror Fox Reason for Consult: Altered mental status History of Present Illness: Patient is an 79-year-old female admitted to the hospital yesterday for altered mental status for 5 days. Patient was also having some lower back pain and came into the emergency Department on Monday and was diagnosed with shingles. Patient started on Valtrex and Medrol Dosepak. Patient continued to have some episodes of altered mental status according to the daughter. Patient's daughter was present at the time of this interview, who provided very detailed history. She states that last Monday on 04/20/2020, patient came up with a rash of shingles. She complained of pain in the back. Patient does have chronic back issues. She takes [place] very occasionally only half a tablet at baseline sometimes when back hurts. On and Monday, April 23 and , patient had worst headache involving bifrontal region, very severe and appears slightly confused. On Monday she was mixing up with the days. The headache improved on Monday. Patient came to ER on 04/25/2020 and was diagno sed with shingles. She was given Valtrex and prednisone and discharged home. Also given [place] which she has been taking 3 times a day until yesterday when it was discontinued. Patient took a Medrol Dosepak only 2 tablets yesterday morning but then discontinued. Since Monday patient is having mental status change. Patient cannot follow a medicine schedule, unsure of what medications should be taken, and what for. She is not able to provide accurate history. Cannot read labels next to the shutdown menu on the computer. Cannot type in the numeric password correctly to get into the computer after several tries on the computer. Patient is running into the [place], stubs toes/feet on the items, gait is shuffling and unsteady. She cannot tube filler steps when walking. Cannot use remote control. Cannot turn off the alarm on the cell phone, cannot On the cell phone. Patient has been pronouncing loss of words or substituting wrong words like an example, computer for TV. Today patient has been hallucinating, seeing objects on the floor, seeing pieces of lands/maps on her legs. The heivan dacpalma is completely gone. Patient's vitals on arrival was blood pressure 143/77, pulse rate 100 and temperature 98.2. Patient has been afebrile. Patient underwent Chest x-ray showed no acute cardiopulmonary disease. EKG with normal sinus rhythm with sinus arrhythmia. Patient had a carotid Doppler on 04/27/2020 which revealed no evidence for hemodynamically significant stenosis of the internal carotid arteries. Computed tomography scan of head from 04/27/2020 showed severe confluent burden of chronic small vessel ischemic disease. No acute intracranial abnormality. A 5 mm nodular prominence at the distal M1 segment left MCA. Non-emergent follow-up MRI angiography of [place] recommended to exclude intracranial aneurysm. Patient's blood test shows normal CBC PT/PTT. White cells are 8.2 normal with normal differential. Sodium was 127 but now 132. Renal functions are normal. AST is mildly elevated 44 and ALT 38. Troponin negative. UA negative. Urine drug screen positive for opiate. Mancini virus PCR negative. Patient has history of hypertension. Denies diabetes. Does not smoke. Patient denies any family history of cerebral aneurysm although her mother had mini strokes and of a massive stroke in her 90s. Review of Systems As above in detail. At present the headache is completely resolved. Patient does have chronic back pain. Some hallucinations. All other review of systems unremarkable. Past Medical History Past Medical History: Cancer, GERD/Reflux, Hyperlipidemia, Hypertension, Renal Disease, Vascular Disorder Additional Past Medical History / Comment(s): Pt diagnosed with shingelles 04/26/20, "parathyroid condition" with surgery, gastric ulcer, bronchitis, osteoporosis, chronic low back pain, scoliosis, uterine wall cancer with hysterectomy, "irregular heart beat occasionally", CKD per recent labwork as well as "pre-diabetes", occasional L ear tinnitis, veronica states recent Ct scan showed small vessel disease. History of Any Multi-Drug Resistant Organisms: None Reported Past Surgical History: Bladder Surgery, Cholecystectomy, Hysterectomy, Joint Replacement Additional Past Surgical History / Comment(s): Partial parathyroidectomy, bilateral total knee arthroplasties, cystocele, rectocele, colonoscopy. Past Anesthesia/Blood Transfusion Reactions: No Reported Reaction Smoking Status: Never smoker - Past Family History Father Additional Family Medical History / Comment(s): Heart valve disease Mother Family Medical History: Cancer, CVA/TIA, Hyperlipidemia, Hypertension Additional Family Medical History / Comment(s): Breast cancer. Medications and Allergies Home Medications Medication Instructions Recorded Confirmed Type Celecoxib [CeleBREX] 200 mg PO DAILY PRN 04/28/20 04/28/20 History Cholecalciferol [Vitamin D3 (25 1,000 unit PO DAILY 04/28/20 04/28/20 History Mcg = 1000 Iu)] Citalopram Hydrobromide 20 mg PO DAILY 04/28/20 04/28/20 History [Citalopram HBr] HYDROcodone/APAP 5-325MG [[place] 1 tab PO TID PRN 04/28/20 04/28/20 History 5-325] Loperamide [Imodium] 2 mg PO DAILY 04/28/20 04/28/20 History Multivitamins, Thera [Multivitamin 1 tab PO DAILY 04/28/20 04/28/20 History (formulary)] Olmesartan/Hydrochlorothiazide 1 tab PO DAILY 04/28/20 04/28/20 History [Olmesartan/Hydrochlorothiazide 40-25 MG] Omeprazole 20 mg PO DAILY 04/28/20 04/28/20 History Simvastatin [Zocor] 10 mg PO HS 04/28/20 04/28/20 History clonazePAM [KlonoPIN] 0.25 - 0.5 mg PO BID 04/28/20 04/28/20 History methylPREDNISolone [Medrol Dose See Taper PO DIRECTED 04/28/20 04/28/20 History Pack] valACYclovir HCL [Valtrex] 1,000 mg PO Q12H 04/28/20 04/28/20 History Allergies Allergy/AdvReac Type Severity Reaction Status Date / Time Sulfa (Sulfonamide Allergy Rash/Hives Verified 04/28/20 13:37 Antibiotics) Penicillins AdvReac Diarrhea Verified 04/28/20 13:37 Physical Examination - Vital Signs Vital Signs: Vital Signs Temp Pulse Pulse Resp BP BP Pulse Ox 04/29/20 08:00 97.6 F 92 18 180/90 97 04/29/20 04:00 98.1 F 88 18 167/83 96 04/29/20 00:00 98.0 F 83 18 185/98 93 L 04/28/20 20:00 97.7 F 82 18 164/91 96 04/28/20 17:10 98.3 F 85 18 185/86 96 04/28/20 15:31 97.6 F 85 16 152/105 96 04/28/20 12:57 97.8 F 89 16 119/95 96 04/28/20 11:13 98.2 F 100 18 143/77 97 Intake and Output 04/28/20 04/29/20 04/29/20 22:59 06:59 14:59 Intake Total 923 480 Output Total 600 Balance 323 480 Intake: Intake, IV Titration 263 Amount Sodium Chloride 0.9% 1, 263 000 ml @ 75 mls/hr IV . [id number] Rx#:[id number] Oral 660 480 Output: Urine 600 Other: # Voids 0 1 Weight 74.389 kg 74 kg On examination patient is an elderly female, in no acute distress. Patient is alert and awake, well oriented. She states it is 04/18/2020, knows that she is in [facility] in [facility] and name of the current president. Her speech and language functions appears normal. Patient can name, repeat, read and write. Her handwriting is shaky. On cranial nerve examination pupils are round and reacting. Her right pupil is slightly larger about 4 mm, left is 3 mm, both reactive. Visual eli are full on confrontation, with no neglect on double simultaneous stimulation. Extraocular muscles are intact with no nystagmus. Face is symmetric, tongue protrudes the midline. Palatal elevation and sensation normal. Hearing is slightly decreased on the right side. Shoulder shrug normal. On muscle strength testing there is no pronator drift and the strength is normal in arms and legs distally and proximally. Reflexes are 1+ and plantars are downgoing. Sensory touch is equal. No neglect on double simultaneous stimulation. No ataxia for [id number] testing on the patient is tremulous on both sides. Tone and bulk of muscles is normal. No obvious bruit, S1 and S2 audible, peripheral pulses present. No edema. Chest is clear, abdomen soft nontender. Results - Laboratory Findings CBC and BMP: 04/28/20 12:00 04/29/20 06:54 Abnormal Lab Findings: Abnormal Labs 04/28/20 04/28/20 04/28/20 12:00 12:00 12:08 Sodium 127 L Chloride 92 L Glucose 159 H POC Glucose (mg/dL) Magnesium 1.3 L AST 44 H ALT 38 H Urine Protein 1+ H Ur Leukocyte Esterase Small H Urine Bacteria Rare H Urine Opiates Screen Detected H 04/28/20 04/29/20 12:52 06:54 Sodium 132 L Chloride 95 L Glucose 101 H POC Glucose (mg/dL) 151 H Magnesium AST ALT Urine Protein Ur Leukocyte Esterase Urine Bacteria Urine Opiates Screen Assessment and Plan Assessment: * 79-year-old female with recent history of shingles, has developed acute delirium with mental confusion, and hallucinations. Possible related to use of [place] and prednisone for shingles. * Recent history of severe headache on 04/23/2020, that lasted for a few days. Patient's computed tomography scan of the head revealed possibility of 5 mm aneurysm left MCA. Need further evaluation. Rule out sentinel bleed. At present the headache has resolved, no signs of infection, therefore doubt intracranial infection. * Shingles, much improved. * Hypertension Plan: * We will perform MRI of the brain to rule out CVA, MRA of the head for further evaluation of possible aneurysm. * Patient's B12 is normal 668, folate 21.3, normal TSH. Hemoglobin A1c 6.1. * Avoid opiates. * We will follow with you.
[2020-04-29 15:19] LABS: Glucose,Whole Blood 127 mg/dL (75-99)
--- NOTE | 2020-04-29 15:20 | P.PN ---
Subjective Progress Note Date: 04/29/20 Principal diagnosis: 79-year-old pleasant female was sent in here because of altered mental status I was able to the patient as well as the family members patient is alert oriented 3 at this time. Patient's family brought her here to the hospital because of the primary care physician as him to go to the hospital for altered mental status and the patient family was told that patient will need an MRI and MRA. Patient had a CAT scan and carotid Doppler as an outpatient CAT scan of the head did not show any significant acute abnormality but did show some chronic microvascular ischemic changes and carotid Doppler is essentially within normal limits at these 2 tests were done as today. She doesn't have any focal weakness. But as per the family patient is bit confused. Upon further cushioning patient has been taking note: Regular basis for last few days because of her uncontrolled back pain. Patient does take Celebrex as well patient now doesn't know which medication she took last couple days patient is also on Klonopin which she did take yesterday. Patient is also hyponatremic at 127. Patient doesn't have any ataxia patient has a low stepping gait beyond that there is no abnormality in the gait either. My suspicion is low for several vascular accident patient has toxic and was metabolic encephalopathy from medications and maybe little bit of contribution from hyponatremia patient is on hydrochlorothiazide. Patient denied any fever chills dysuria no evidence of infection at this time no leukocytosis no fever, chest x-ray did not show any pneumonia urine is not impressive for urinary tract infection. Patient is also hypomagnesemic. Patient urine drug screen is positive for opiates because of the she is taking. Patient is presently not confused 04/29/2020 Patient is seen and evaluated in follow-up today and mentation has improved although patient is stating that she was having some hallucinations and seeing maps on the wall that were not there and also when looking at the computer screen is noticing squiggly lines and shapes that are not present on the screen. No other neuro deficits noted. Patient denies any dizziness, lightheadedness, chest pain, shortness of breath, or palpitations at this time. Patient is afebrile. No reports of nausea or vomiting and patient is tolerating diet. Neurology was consulted and pending at this time. Patient continues to request MRI although will wait for neurology to evaluate patient. Patient is currently up walking in the room with no difficulties with physical therapy at this time. Patient's sodium today is improved at 132, magnesium is 1.9 today. Objective - Vital Signs Vital signs: Vital Signs Temp 97.9 F 04/29/20 11:21 Pulse 81 04/29/20 11:21 Resp 18 04/29/20 11:23 BP 163/83 04/29/20 11:21 Pulse Ox 97 04/29/20 11:21 Intake & Output 04/28/20 04/29/20 04/29/20 18:59 06:59 18:59 Intake Total 320 803 480 Output Total 600 Balance 320 203 480 Weight 74.389 kg 74 kg Intake: Intake, IV Titration 263 Amount Sodium Chloride 0.9% 1, 263 000 ml @ 75 mls/hr IV . [id number] Rx#:[id number] Oral 320 540 480 Output: Urine 600 Other: # Voids 0 1 - Exam GENERAL: The patient is alert and oriented x3, not in any acute distress. Well developed, well nourished. HEENT: Pupils are round and equally reacting to light. EOMI. No scleral icterus. No conjunctival pallor. Normocephalic, atraumatic. No pharyngeal erythema. No thyromegaly. CARDIOVASCULAR: S1 and S2 present. No murmurs, rubs, or gallops. PULMONARY: Chest is clear to auscultation, no wheezing or crackles. ABDOMEN: Soft, nontender, nondistended, normoactive bowel sounds. No palpable organomegaly. MUSCULOSKELETAL: No joint swelling or deformity. EXTREMITIES: No cyanosis, clubbing, or pedal edema. NEUROLOGICAL: Gross neurological examination did not reveal any focal deficits. Gait as mentioned above. SKIN: No rashes. - Labs CBC & Chem 7: 04/28/20 12:00 04/29/20 06:54 Labs: Abnormal Lab Results - Last 24 Hours (Table) 04/29/20 Range/Units 06:54 Sodium 132 L (137-145) mmol/L Chloride 95 L (98-107) mmol/L Glucose 101 H (74-99) mg/dL Assessment and Plan Assessment: -Altered mental status: Secondary to toxic and metabolic encephalopathy. Neurology consulted and pending at this time. Patient states this morning she was having some hallucinations and is aware that what she was seeing are not real although was having some and also when looking at a computer screen she is noticing some squiggly lines in things that are not there. Family continues to request an MRI and will await neuro eval -Toxic encephalopathy from [place] and Klonopin which were discontinued and patient will have Toradol as needed for pain. gabapentin for neuropathic pain from her shingles in the right buttock area. -There may be a component of metabolic encephalopathy from hyponatremia which is again secondary to hydrochlorothiazide which was discontinued and patient was started on IV fluids -hypertension patient will be started on JUANA inhibitor. -Hyperlipidemia -History of shingles which appears to be healing at this time continue with Valtrex patient has shingles lesions on the right buttock area -Gastroesophageal reflux disease -DVT prophylaxis with subcutaneous heparin Plan: Continue current medications, management, and symptomatic treatment. Awaiting neurology evaluation. Patient has been working with physical therapy and will await notes. Will continue to monitor closely. Will repeat a.m. labs. Further recommendations to follow. Possible discharge in 24 hours.
--- NOTE | 2020-04-29 18:25 | MR ---
EXAMINATION TYPE: MR angio head wo con DATE OF EXAM: 04/29/2020 COMPARISON: CT brain 2 days ago. HISTORY: AMS, CVA, aneurysm TECHNIQUE: Time of flight images focusing on the [place] were performed without contrast.. 2-D and 3-D postprocessing imaging is performed on independent workstation and reviewed.. FINDINGS: There is codominant vertebrobasilar system. There are small caliber but patent bilateral po sterior communicating arteries. No significant focal stenosis or aneurysmal change in the posterior c irculation. Images of the anterior circulation show patent small caliber anterior communicating artery. There is no significant focal stenosis or aneurysmal change identified. IMPRESSION: No aneurysmal change at the level of the [place] of [place].
--- NOTE | 2020-04-29 19:08 | MR ---
EXAMINATION TYPE: MR brain wo con DATE OF EXAM: 04/29/2020 COMPARISON: CT brain 2 days ago. HISTORY: AMS, CVA, aneurysm. Unsteady gait and confusion on admission 2 days earlier. TECHNIQUE: Multiplanar, multisequence imaging of the brain and brainstem is performed without IV cont rast. FINDINGS: Diffusion weighted images demonstrate no evidence of a recent infarct or other diffusion abnormality. There is no worrisome extra-axial fluid collection. There is diffuse ventricular and sulcal prominenc e. There is more prominent focal and confluent areas of T2 hyperintensity seen throughout the superfi cial, deep, and periventricular white matter presumed on the basis of product of chronic small vessel ischemic change. Midline structures demonstrate normal morphology. The craniocervical junction appears within normal limits. Normal vascular flow voids are present. The visualized sinuses are clear and the globes are i ntact. IMPRESSION: There is no evidence of a recent infarct. There is mild to moderate diffuse cerebral atro phy and advanced chronic small vessel ischemic change noted.
[2020-04-29] MEDS: ATORVASTATIN 10 MG TAB PO SCH (20:48)
[2020-04-30] MEDS: KETOROLAC 30 MG/ML 1 ML VIAL IVP PRN ×2 (01:46→09:22)
[2020-04-30] MEDS: PANTOPRAZOLE 40 MG TABLET PO SCH (06:16)
[2020-04-30 09:16] LABS: Basophils # (A) 0.1 k/uL (0-0.2); Basophils % (A) 1 %; Eosinophils # (A) 0.4 k/uL (0-0.7); Eosinophils % (A) 5 %; HCT 39.9 % (34.0-46.0); HGB 13.7 gm/dL (11.4-16.0); Lymphocytes # (A) 1.7 k/uL (1.0-4.8); Lymphocytes % (A) 21 %; MCH 30.4 pg (25.0-35.0); MCHC 34.4 g/dL (31.0-37.0); MCV 88.2 fL (80.0-100.0); Mean Platelet Volume 6.3; Monocytes # (A) 0.5 k/uL (0-1.0); Monocytes % (A) 6 %; Neutrophils # (A) 5.2 k/uL (1.3-7.7); Neutrophils % (A) 65 %; Platelet Count 449 k/uL (150-450); RBC 4.53 m/uL (3.80-5.40); RDW 13.1 % (11.5-15.5)
[2020-04-30] MEDS: valACYclovir HCL 1,000 MG TABLET PO SCH (09:16)
[2020-04-30] MEDS: amLODIPine 5 MG TAB PO SCH (09:22)
[2020-04-30] MEDS: lisinopriL 20 MG TAB PO SCH (09:22)
[2020-04-30] MEDS: CITALOPRAM HYDROBROMIDE 20 MG TAB PO SCH (09:22)
[2020-04-30 09:38] LABS: Calcium 9.4 mg/dL (8.4-10.2); Potassium 3.7 mmol/L (3.5-5.1)
[2020-04-30] MEDS ORDERED: QUEtiapine 25 MG TAB PO PRN (12:53)
--- NOTE | 2020-04-30 15:57 | P.PN ---
Subjective Progress Note Date: 04/30/20 Patient is feeling much better. Patient did have hallucinations the last night, when she was seeing kids outside the window, throwing stuff. She also saw 40-50 people going across in the hallway, which according to patient's daughter was in her imagination. She was feeling conspiracy. However this morning she is much more clear. Patient has stopped taking Valtrex. Objective - Vital Signs Vital signs: Vital Signs Temp 97.7 F 04/30/20 08:00 Pulse 77 04/30/20 12:00 Resp 19 04/30/20 12:00 BP 116/66 04/30/20 12:00 Pulse Ox 97 04/30/20 12:00 Intake & Output 04/29/20 04/30/20 04/30/20 18:59 06:59 18:59 Intake Total 480 0 240 Output Total 3 Balance 480 0 237 Weight 74.3 kg Intake: Oral 480 0 240 Output: Stool 3 Other: # Voids 1 3 - Exam Mental status, speech and language functions, cranial nerves, muscle strength all normal. - Labs CBC & Chem 7: 04/30/20 09:04 04/30/20 09:04 Labs: Abnormal Lab Results - Last 24 Hours (Table) 04/30/20 Range/Units 09:04 Sodium 130 L (137-145) mmol/L Chloride 96 L (98-107) mmol/L Glucose 130 H (74-99) mg/dL Assessment and Plan Assessment: * 79-year-old female with recent history of shingles, has developed acute delirium with mental confusion, and hallucinations. Possible related to use of [place] and prednisone for shingles. * Recent history of severe headache on 04/23/2020, that lasted for a few days. Unclear etiology. The headache has resolved. MRA of the brain revealed no aneurysm. At present the headache has resolved, no signs of infection, therefore doubt intracranial infection. * Shingles, much improved. * Hypertension Plan: * MRI of the brain revealed no acute process. There is mild to moderate diffuse cerebral atrophy and advanced chronic small vessel ischemic change. * MRA of the head showed no aneurysmal change at the level of [place]. No stenosis. * Carotid Doppler showed no significant stenosis. Antegrade flow in both vertebral arteries. * Patient's B12 is normal 668, folate 21.3, normal TSH. Hemoglobin A1c 6.1. * Avoid opiates. Valtrex has been discontinued. * At present patient's mentation has much improved. Patient will receive Seroquel only as needed if she has hallucinations. Per family members, patient has no evidence of dementia or cognitive impairment prior to onset of these symptoms few days ago. Suspect delirium, which now seems to have resolved. Consider starting aspirin 81 mg daily for stroke prevention related to small vessel disease. * Neurologically clear for discharge.
[2020-04-30] MEDS: ACETAMINOPHEN TAB 325 MG TAB PO PRN ×2 (16:26→23:41)
[2020-04-30] MEDS: ASPIRIN 81 MG PO SCH (18:52)
[2020-04-30] MEDS: ATORVASTATIN 10 MG TAB PO SCH (20:57)
[2020-05-01] MEDS ORDERED: MELOXICAM 7.5 MG TAB PO PRN (06:05)
[2020-05-01] MEDS: PANTOPRAZOLE 40 MG TABLET PO SCH (06:13)
--- NOTE | 2020-05-01 06:45 | P.PN ---
Subjective Progress Note Date: 04/30/20 Principal diagnosis: 79-year-old pleasant female was sent in here because of altered mental status I was able to the patient as well as the family members patient is alert oriented 3 at this time. Patient's family brought her here to the hospital because of the primary care physician as him to go to the hospital for altered mental status and the patient family was told that patient will need an MRI and MRA. Patient had a CAT scan and carotid Doppler as an outpatient CAT scan of the head did not show any significant acute abnormality but did show some chronic microvascular ischemic changes and carotid Doppler is essentially within normal limits at these 2 tests were done as today. She doesn't have any focal weakness. But as per the family patient is bit confused. Upon further cushioning patient has been taking note: Regular basis for last few days because of her uncontrolled back pain. Patient does take Celebrex as well patient now doesn't know which medication she took last couple days patient is also on Klonopin which she did take yesterday. Patient is also hyponatremic at 127. Patient doesn't have any ataxia patient has a low stepping gait beyond that there is no abnormality in the gait either. My suspicion is low for several vascular accident patient has toxic and was metabolic encephalopathy from medications and maybe little bit of contribution from hyponatremia patient is on hydrochlorothiazide. Patient denied any fever chills dysuria no evidence of infection at this time no leukocytosis no fever, chest x-ray did not show any pneumonia urine is not impressive for urinary tract infection. Patient is also hypomagnesemic. Patient urine drug screen is positive for opiates because of the she is taking. Patient is presently not confused 04/29/2020 Patient is seen and evaluated in follow-up today and mentation has improved although patient is stating that she was having some hallucinations and seeing maps on the wall that were not there and also when looking at the computer screen is noticing squiggly lines and shapes that are not present on the screen. No other neuro deficits noted. Patient denies any dizziness, lightheadedness, chest pain, shortness of breath, or palpitations at this time. Patient is afebrile. No reports of nausea or vomiting and patient is tolerating diet. Neurology was consulted and pending at this time. Patient continues to request MRI although will wait for neurology to evaluate patient. Patient is currently up walking in the room with no difficulties with physical therapy at this time. Patient's sodium today is improved at 132, magnesium is 1.9 today. 04/30/2020 Patient is seen and evaluated this morning with family at the bedside stating that the patient is much more confused and continues to hallucinate and that they fear it is the valtrex causing this. Valtrex has been discontinued for now. Shingles are crusted over. Patient can have seroquel 25mg at bed as needed for hallucinations or agitation as the state of confusion may be related to delirium secondary to hospitalization. Patient denies any chest pain, shortness of breath, or palpitations at this time. Patient is afebrile. No reports of nausea or vomiting and tolerating diet. Avoiding narcotics at this time. Neurology following. Anastasiia underwent MRI an MRA of the brain which showed some atrophic changes although no acute process noted. Objective - Vital Signs Vital signs: Vital Signs Temp 97.7 F 04/30/20 08:00 Pulse 78 04/30/20 08:00 Resp 17 04/30/20 08:00 BP 138/71 04/30/20 08:00 Pulse Ox 98 04/30/20 08:00 Intake & Output 04/29/20 04/30/20 04/30/20 18:59 06:59 18:59 Intake Total 480 0 240 Balance 480 0 240 Weight 74.3 kg Intake: Oral 480 0 240 Other: # Voids 1 - Exam GENERAL: The patient is alert and oriented x3, not in any acute distress. Well developed, well nourished. HEENT: Pupils are round and equally reacting to light. EOMI. No scleral icterus. No conjunctival pallor. Normocephalic, atraumatic. No pharyngeal erythema. No thyromegaly. CARDIOVASCULAR: S1 and S2 present. No murmurs, rubs, or gallops. PULMONARY: Chest is clear to auscultation, no wheezing or crackles. ABDOMEN: Soft, nontender, nondistended, normoactive bowel sounds. No palpable organomegaly. MUSCULOSKELETAL: No joint swelling or deformity. EXTREMITIES: No cyanosis, clubbing, or pedal edema. NEUROLOGICAL: Gross neurological examination did not reveal any focal deficits. Gait as mentioned above. SKIN: No rashes. - Labs CBC & Chem 7: 04/30/20 09:04 04/30/20 09:04 Labs: Abnormal Lab Results - Last 24 Hours (Table) 04/29/20 04/30/20 Range/Units 14:59 09:04 Sodium 130 L (137-145) mmol/L Chloride 96 L (98-107) mmol/L Glucose 130 H (74-99) mg/dL POC Glucose (mg/dL) 127 H (75-99) mg/dL Assessment and Plan Assessment: -Altered mental status: Secondary to toxic and metabolic encephalopathy. Neurology following. MRA and MRI were negative. Per family patient is more confused today than she has been and continued to hallucinate throughout the night. - possibility of dementia either vascular or senile dementia with a possibility of delirium secondary to hospitalization. Will use seroquel 25mg @ hs as needed for hallucinations or agitation -Toxic encephalopathy from [place] and Klonopin which were discontinued and patient will have Toradol as needed for pain. gabapentin for neuropathic pain from her shingles in the right buttock area. -There may be a component of metabolic encephalopathy from hyponatremia which is again secondary to hydrochlorothiazide which was discontinued and patient was started on IV fluids -hypertension patient will be started on JUANA inhibitor. -Hyperlipidemia -History of shingles which is improving. Valtrex discontinued as family feels the valtrex may be causing the hallucinations. -Gastroesophageal reflux disease -DVT prophylaxis with subcutaneous heparin Plan: Continue current medications, management, and symptomatic treatment. Neurology following. MRI and MRA negative. Patient has been working with physical therapy and will await notes. Will continue to monitor closely. Will repeat a.m. labs. Further recommendations to follow. Possible discharge in 24 hours.
[2020-05-01] MEDS: lisinopriL 20 MG TAB PO SCH (08:15)
[2020-05-01] MEDS: amLODIPine 5 MG TAB PO SCH (08:15)
[2020-05-01] MEDS: ASPIRIN 81 MG PO SCH (08:15)
[2020-05-01] MEDS: CITALOPRAM HYDROBROMIDE 20 MG TAB PO SCH (08:16)
[2020-05-01 08:33] VITALS: BP 143/80; PULSE 89; RESP 18; TEMP 98.3
[2020-05-01 08:36] LABS: Calcium 9.8 mg/dL (8.4-10.2); Potassium 4.2 mmol/L (3.5-5.1)
--- NOTE | 2020-05-01 11:25 | P.DS ---
Providers Date of admission: 04/28/20 14:11 Expected date of discharge: 05/01/20 Attending physician: Angelo Cardenas Consults: 04/28/20 14:49 Consult Physician Routine Consulting Provider: Noé Dai Consult Reason/Comments: Altered Mental Status Do you want consulting provider notified?: Yes 04/30/20 12:51 Consult Physician Urgent Consulting Provider: Clif Lambert Consult Reason/Comments: confusion, altered mental status, delirium Do you want consulting provider notified?: Yes Primary care physician: Ingrid Echols Hospital Course: Final diagnosis -Altered mental status: Secondary to toxic and metabolic encephalopathy -possibility of dementia either vascular or senile dementia with a possibility of delirium secondary to hospitalization -Toxic encephalopathy from [place] and Klonopin -There may be a component of metabolic encephalopathy from hyponatremia which is again secondary to hydrochlorothiazide -hypertension -Hyperlipidemia -History of shingles -Gastroesophageal reflux disease -DVT prophylaxis Discharge disposition Patient is being discharged in a stable condition with guarded prognosis to home. Patient will follow-up with Dr. Ingrid Echols upon discharge. Total time taken is 35 minutes. History of present illness This is an 79-year-old female who was recently admitted with altered mental status and was being closely monitored. Patient underwent outpatient testing which did not show any acute abnormality although patient continued to have some confusion and was hallucinating. Patient was evaluated by neurology and underwent MRI and MRA of the brain which were negative. Patient was taking [place] along with Valtrex for recent outbreak of shingles and patient may have been having some confusion or altered mental status due to toxic and metabolic encephalopathy. During hospitalization patient continued to be confused and hallucinating at times which was possibly due to acute delirium from hospitalization. Patient was given some Seroquel 25 mg to use at night as needed if hallucinations or agitation occur. Patient was also found to be hyponatremic which is currently improved with gentle IV fluids. Hydrochlorothiazide has been discontinued. Patient will be given mobic along with Pepcid upon discharge for pain. Patient instructed to avoid narcotics. Today patient's mentation is much improved and would like to go home today. Currently no reports of chest pain, shortness of breath, or palpitations. Patient is afebrile. No reports of nausea or vomiting and patient is tolerating diet. On exam vital signs are stable. Temp is 98.3F, pulse is 89, respirations are 18, blood pressure is 143/80, oxygen saturation is 98% on room air. Cardio S1, S2 are present. Respiratory system shows clear to auscultation. Abdomen is soft and non-tender. Nervous system shows no focal deficits. Please refer to medication reconciliation sheet for a list of medications. Patient Condition at Discharge: Stable Plan - Discharge Summary Discharge Rx Participant: No New Discharge Prescriptions: New Meloxicam [Mobic] 15 mg PO DAILY PRN #30 tab PRN Reason: Moderate Pain amLODIPine [Norvasc] 5 mg PO DAILY #30 tab Acetaminophen Tab [Tylenol] 650 mg PO Q6HR PRN tab PRN Reason: Pain Lisinopril [Zestril] 20 mg PO DAILY #30 tab Acyclovir [Zovirax] 400 mg PO TID #20 tab QUEtiapine [SEROquel] 25 mg PO HS PRN #30 tab PRN Reason: Agitation Famotidine [Pepcid] 20 mg PO BID #60 tablet Continue Celecoxib [CeleBREX] 200 mg PO DAILY PRN PRN Reason: Pain Cholecalciferol [Vitamin D3 (25 Mcg = 1000 Iu)] 1,000 unit PO DAILY Citalopram Hydrobromide [Citalopram HBr] 20 mg PO DAILY Loperamide [Imodium] 2 mg PO DAILY methylPREDNISolone [Medrol Dose Pack] See Taper PO DIRECTED Multivitamins, Thera [Multivitamin (formulary)] 1 tab PO DAILY Omeprazole 20 mg PO DAILY Simvastatin [Zocor] 10 mg PO HS Discontinued clonazePAM [KlonoPIN] 0.25 - 0.5 mg PO BID HYDROcodone/APAP 5-325MG [[place] 5-325] 1 tab PO TID PRN PRN Reason: Pain Olmesartan/Hydrochlorothiazide [Olmesartan/Hydrochlorothiazide 40-25 MG] 1 tab PO DAILY valACYclovir HCL [Valtrex] 1,000 mg PO Q12H Discharge Medication List Celecoxib [CeleBREX] 200 mg PO DAILY PRN 04/28/20 [History] Cholecalciferol [Vitamin D3 (25 Mcg = 1000 Iu)] 1,000 unit PO DAILY 04/28/20 [History] Citalopram Hydrobromide [Citalopram HBr] 20 mg PO DAILY 04/28/20 [History] Loperamide [Imodium] 2 mg PO DAILY 04/28/20 [History] Multivitamins, Thera [Multivitamin (formulary)] 1 tab PO DAILY 04/28/20 [History] Omeprazole 20 mg PO DAILY 04/28/20 [History] Simvastatin [Zocor] 10 mg PO HS 04/28/20 [History] methylPREDNISolone [Medrol Dose Pack] See Taper PO DIRECTED 04/28/20 [History] Acetaminophen Tab [Tylenol] 650 mg PO Q6HR PRN tab 05/01/20 [Rx] Acyclovir [Zovirax] 400 mg PO TID #20 tab 05/01/20 [Rx] Famotidine [Pepcid] 20 mg PO BID #60 tablet 05/01/20 [Rx] Lisinopril [Zestril] 20 mg PO DAILY #30 tab 05/01/20 [Rx] Meloxicam [Mobic] 15 mg PO DAILY PRN #30 tab 05/01/20 [Rx] QUEtiapine [SEROquel] 25 mg PO HS PRN #30 tab 05/01/20 [Rx] amLODIPine [Norvasc] 5 mg PO DAILY #30 tab 05/01/20 [Rx] Follow up Appointment(s)/Referral(s): Ingrid Echols MD [Primary Care Provider] - 3 Days Patient Instructions/Handouts: Jing (JACOB) Discharge Disposition: HOME WITH HOME HEALTH SERVICES
== END 2020-05-01 08:56 | disposition home health service (06) ==
LOC: EC 11:11 → INTOOBSV 14:11 → 3SCARD 14:11 → UNDODISIN 05-01 08:56
PROVIDERS: ADMIT Internal Medicine; ATTEND Internal Medicine
DX: T40.2X5A Adverse effect of other opioids, initial encounter (principal); T42.4X5A Adverse effect of benzodiazepines, initial encounter; T50.2X5A Adverse effect of carbonic-anhydrase inhibitors, benzothiadiazides and other diuretics, initial encounter; G92 Toxic encephalopathy; R44.1 Visual hallucinations; R41.82 Altered mental status, unspecified; F05 Delirium due to known physiological condition; I12.9 Hypertensive chronic kidney disease with stage 1 through stage 4 chronic kidney disease, or unspecified chronic kidney disease; N18.9 Chronic kidney disease, unspecified; E78.5 Hyperlipidemia, unspecified; B02.9 Zoster without complications; K21.9 Gastro-esophageal reflux disease without esophagitis; E87.1 Hypo-osmolality and hyponatremia; E83.42 Hypomagnesemia; K52.9 Noninfective gastroenteritis and colitis, unspecified; E89.2 Postprocedural hypoparathyroidism; F41.9 Anxiety disorder, unspecified; F32.9 Major depressive disorder, single episode, unspecified; I67.82 Cerebral ischemia; G89.29 Other chronic pain; M54.5 Low back pain; M41.9 Scoliosis, unspecified; R73.03 Prediabetes; H93.12 Tinnitus, left ear; R26.81 Unsteadiness on feet; G31.9 Degenerative disease of nervous system, unspecified; E66.9 Obesity, unspecified; Z68.27 Body mass index [BMI] 27.0-27.9, adult; Z03.818 Encounter for observation for suspected exposure to other biological agents ruled out; Z79.899 Other long term (current) drug therapy; Z79.891 Long term (current) use of opiate analgesic; Z79.1 Long term (current) use of non-steroidal anti-inflammatories (NSAID); Z88.2 Allergy status to sulfonamides; Z88.0 Allergy status to penicillin; Z90.49 Acquired absence of other specified parts of digestive tract; Z90.710 Acquired absence of both cervix and uterus; Z96.653 Presence of artificial knee joint, bilateral; Z85.42 Personal history of malignant neoplasm of other parts of uterus; Z87.11 Personal history of peptic ulcer disease; Z87.09 Personal history of other diseases of the respiratory system; Z98.890 Other specified postprocedural states; Z87.39 Personal history of other diseases of the musculoskeletal system and connective tissue; Z82.49 Family history of ischemic heart disease and other diseases of the circulatory system; Z80.3 Family history of malignant neoplasm of breast; Z82.3 Family history of stroke; Z83.438 Family history of other disorder of lipoprotein metabolism and other lipidemia
CPT/HCPCS: 96361; 96365; 96366; 99285; 36415; 93005; 97162; 97535; 97166; 80061; 80053 ×2; 80048 ×3; 85652; 84443; 82607; 82550; 82746; 83615; 83735 ×3; 84550; 84484 ×2; 85025 ×3; 85610; 85730; 86140; 81001 ×2; 82306; 86038; 80306; 87086; 83036; 71046; 93880; 70450; 70544; 70551; G0378 ×4; U0003; J1885; J3475

== ENCOUNTER → 2020-07-07 | Outpatient (CLI) | payer MEDICARE ==
--- NOTE | 2020-07-07 08:38 | US ---
EXAMINATION TYPE: US kidneys/renal and bladder DATE OF EXAM: 07/07/2020 COMPARISON: US 01/11/11 CLINICAL HISTORY: N18.9 Chronic kidney disease. EXAM MEASUREMENTS: Right Kidney: 12.3 x 5.9 x 5.5 cm Left Kidney: 12.6 x 5.4 x 5.2 cm Post Void Residual Volume: 84.2 mL Right Kidney: Decreased renal cortex, Multiple cysts. Largest 3 measured: 2.6 x 2.7 x 2.5 cm 2.9 x 3.0 x 1.9 cm 3.0 x 2.8 x 2.0 cm Left Kidney: Decreased renal cortex, Multiple cysts. Largest 2 measured: 2.7 x 2.9 x 2.5 cm 2.1 x 1.9 x 2.0 cm Bladder: wnl Bilateral Jets seen: Yes Normal Post Void Residual: No There is no evidence for hydronephrosis at this point in time. No nephrolithiasis is seen. No solid masses are identified. The urinary bladder is anechoic. Bilateral ureteral jets are seen. IMPRESSION: 1. Findings suggest medical renal disease. 2. Renal cystic changes.
== END | disposition home or self-care (01) ==
LOC: RADUSWWP 07:29
PROVIDERS: ATTEND Family Medicine
DX: N28.1 Cyst of kidney, acquired (principal); N18.9 Chronic kidney disease, unspecified
CPT/HCPCS: 76770

== ENCOUNTER 2020-11-05 16:30 | Emergency (ER) | payer MEDICARE ==
[2020-11-05 16:42] VITALS: RESP 18; TEMP 98.3
--- NOTE | 2020-11-05 17:03 | ED ---
General Adult HPI - General Chief complaint: Upper Respiratory Infection Stated complaint: coughing up blood Time Seen by Provider: 11/05/20 16:44 Source: patient, family, RN notes reviewed Mode of arrival: ambulatory Limitations: no limitations - History of Present Illness Initial comments: Patient is a pleasant 79-year-old female presenting to the emergency department for coughing blood. Onset of symptoms was yesterday. Patient has had 4 or 5 episodes today. Patient states she feels something draining down the back of her throat and then coughs and blood is present. No history of similar symptoms previously. Patient has not noticed bleeding from her anterior nose. No cough otherwise. No dyspnea. No fevers. No other areas of bleeding. - Related Data Home Medications Medication Instructions Recorded Confirmed Celecoxib [CeleBREX] 200 mg PO DAILY PRN 04/28/20 04/28/20 Cholecalciferol [Vitamin D3 (25 1,000 unit PO DAILY 04/28/20 04/28/20 Mcg = 1000 Iu)] Citalopram Hydrobromide 20 mg PO DAILY 04/28/20 04/28/20 [Citalopram HBr] Loperamide [Imodium] 2 mg PO DAILY 04/28/20 04/28/20 Multivitamins, Thera [Multivitamin 1 tab PO DAILY 04/28/20 04/28/20 (formulary)] Omeprazole 20 mg PO DAILY 04/28/20 04/28/20 Simvastatin [Zocor] 10 mg PO HS 04/28/20 04/28/20 methylPREDNISolone [Medrol Dose See Taper PO DIRECTED 04/28/20 04/28/20 Pack] Previous Rx's Medication Instructions Recorded Acetaminophen Tab [Tylenol] 650 mg PO Q6HR PRN tab 05/01/20 Acyclovir [Zovirax] 400 mg PO TID #20 tab 05/01/20 Famotidine [Pepcid] 20 mg PO BID #60 tablet 05/01/20 Meloxicam [Mobic] 15 mg PO DAILY PRN #30 tab 05/01/20 QUEtiapine [SEROquel] 25 mg PO HS PRN #30 tab 05/01/20 amLODIPine [Norvasc] 5 mg PO DAILY #30 tab 05/01/20 lisinopriL [Zestril] 20 mg PO DAILY #30 tab 05/01/20 Allergies Allergy/AdvReac Type Severity Reaction Status Date / Time Sulfa (Sulfonamide Allergy Rash/Hives Verified 11/05/20 16:42 Antibiotics) Penicillins AdvReac Diarrhea Verified 11/05/20 16:42 Review of Systems ROS Statement: Those systems with pertinent positive or pertinent negative responses have been documented in the HPI. ROS Other: All systems not noted in ROS Statement are negative. Constitutional: Denies: fever Eyes: Denies: eye pain ENT: Reports: as per HPI Respiratory: Reports: as per HPI Cardiovascular: Denies: chest pain Endocrine: Denies: fatigue Gastrointestinal: Denies: abdominal pain Genitourinary: Denies: dysuria Musculoskeletal: Denies: back pain Skin: Denies: rash Neurological: Denies: weakness Past Medical History Past Medical History: Cancer, GERD/Reflux, Hyperlipidemia, Hypertension, Renal Disease, Vascular Disorder Additional Past Medical History / Comment(s): Pt diagnosed with shingelles 04/26/20, "parathyroid condition" with surgery, gastric ulcer, bronchitis, o steoporosis, chronic low back pain, scoliosis, uterine wall cancer with hysterectomy, "irregular heart beat occasionally", CKD per recent labwork as well as "pre-diabetes", occasional L ear tinnitis, veronica states recent Ct scan showed small vessel disease. History of Any Multi-Drug Resistant Organisms: None Reported Past Surgical History: Bladder Surgery, Cholecystectomy, Hysterectomy, Joint Replacement Additional Past Surgical History / Comment(s): Partial parathyroidectomy, bilateral total knee arthroplasties, cystocele, rectocele, colonoscopy. Past Anesthesia/Blood Transfusion Reactions: No Reported Reaction Past Psychological History: Anxiety, Depression Smoking Status: Never smoker Past Alcohol Use History: None Reported Past Drug Use History: None Reported - Past Family History Father Additional Family Medical History / Comment(s): Heart valve disease Mother Family Medical History: Cancer, CVA/TIA, Hyperlipidemia, Hypertension Additional Family Medical History / Comment(s): Breast cancer. General Exam Limitations: no limitations General appearance: alert, in no apparent distress Head exam: Present: normocephalic Eye exam: Present: normal appearance ENT exam: Present: normal oropharynx, other (Right nares with dried blood) Respiratory exam: Present: normal lung sounds bilaterally. Absent: respiratory distress, wheezes, rales, rhonchi, stridor, accessory muscle use Cardiovascular Exam: Present: regular rate, normal rhythm GI/Abdominal exam: Present: soft. Absent: tenderness Extremities exam: Present: normal inspection Neurological exam: Present: alert Psychiatric exam: Present: normal affect, normal mood Skin exam: Present: normal color Course Vital Signs 11/05/20 16:39 Temperature 98.3 F Pulse Rate 91 Respiratory 18 Rate Blood Pressure 160/87 O2 Sat by Pulse 97 Oximetry Medical Decision Making - Medical Decision Making Patient reevaluated and resting comfortably in bed. Patient remained symptom- free. Patient does have symptoms history consistent with concern for posterior epistaxis. Exam has concern for possibly even anterior epistaxis. Patient and family updated regarding this and also have similar concerns. They do not want packing at this time. Patient is advised follow-up for further evaluation. - Radiology Data Radiology results: report reviewed (His x-ray shows no acute process. Unable to view film secondary to technical problems) Disposition Clinical Impression: Hemoptysis Disposition: HOME SELF-CARE Condition: Stable Instructions (If sedation given, give patient instructions): Nosebleed (ED), Hemoptysis (ED) Additional Instructions: Please follow-up with primary care physician in the next day or 2 for recheck. Return for bleeding breathing, uncontrolled bleeding, bleeding from other sites, worsening or changing symptoms or other concerns. Is patient prescribed a controlled substance at d/c from ED?: No Referrals: Ingrid Echols MD [Primary Care Provider] - 1-2 days Gerardo Pelayo MD [STAFF PHYSICIAN] - 1-2 days Time of Disposition: 17:30
--- NOTE | 2020-11-05 17:21 | XR ---
EXAM: XR Chest, 2 Views CLINICAL HISTORY: ITS.REASON XR Reason: cough TECHNIQUE: Frontal and lateral views of the chest. COMPARISON: Chest radiograph on 04/28/2020 FINDINGS: Hardware: None. Lungs/pleura: Normal. No focal consolidation. No pleural effusion or pneumothorax. Heart/mediastinum: Normal. No cardiomegaly. Soft tissues: Unremarkable. Bones: No acute fracture. Curvature of the spine. Degenerative changes of the spine. Upper abdomen: Cholecystectomy clips in the right upper quadrant. IMPRESSION: No acute disease identified.
[2020-11-05 18:03] VITALS: BP 155/82; PULSE 89
== END 2020-11-05 18:03 | disposition home or self-care (01) ==
LOC: EC 16:30
DX: R04.2 Hemoptysis (principal); K21.9 Gastro-esophageal reflux disease without esophagitis; K25.9 Gastric ulcer, unspecified as acute or chronic, without hemorrhage or perforation; E78.5 Hyperlipidemia, unspecified; F32.9 Major depressive disorder, single episode, unspecified; F41.9 Anxiety disorder, unspecified; E89.0 Postprocedural hypothyroidism; Z79.899 Other long term (current) drug therapy; Z79.51 Long term (current) use of inhaled steroids; Z88.2 Allergy status to sulfonamides; Z88.0 Allergy status to penicillin; Z96.653 Presence of artificial knee joint, bilateral; Z85.42 Personal history of malignant neoplasm of other parts of uterus
CPT/HCPCS: 71046; 99283

== ENCOUNTER → 2020-12-23 | Outpatient (CLI) | payer MEDICARE ==
--- NOTE | 2021-01-06 13:24 | ECHOF ---
Referral Reason:I10 hypertension, R06.09 dsypenia MEASUREMENTS -------- HEIGHT: 157.5 cm WEIGHT: 68.0 kg BP: IVSd: 1.0 cm (0.6 - 1.1) LVIDd: 4.3 cm (3.9 - 5.3) LVPWd: 1.5 cm (0.6 - 1.1) IVSs: 1.6 cm LVIDs: 3.3 cm LVPWs: 1.5 cm LAESV Index (A-L): 30.68 ml/m Ao Diam: 3.0 cm (2.0 - 3.7) AV Cusp: 1.6 cm (1.5 - 2.6) MV EXCURSION: 18.221 mm (> 18.000) MV EF SLOPE: 47 mm/s (70 - 150) EPSS: 0.5 cm MV E Jair: 0.57 m/s MV DecT: 288 ms MV A Jair: 1.02 m/s MV E/A Ratio: 0.56 RAP: 5.00 mmHg RVSP: 12.36 mmHg FINDINGS -------- Sinus rhythm. This was a technically adequate study. LV size, wall thickness and systolic function are normal, with an EF greater than 55%. The left corine tricular size is normal. The right ventricle is normal in size. LA is midly dilated 29-33ml/m2. The right atrial size is normal. The aortic valve is trileaflet, and appears structurally normal. No aortic stenosis or regurgitation. Mild mitral annular calcification present. Mild mitral regurgitation is present. The tricuspid valve appears structurally normal. Mild tricuspid regurgitation present. Right vent ricular systolic pressure is normal at < 35 mmHg. There is no pulmonic regurgitation present. The aortic root size is normal. There is no pericardial effusion. CONCLUSIONS -------- 1. LV size, wall thickness and systolic function are normal, with an EF greater than 55%. 2. LA is midly dilated 29-33ml/m2. 3. The aortic valve is trileaflet, and appears structurally normal. No aortic stenosis or regurgitati on. 4. Mild mitral regurgitation is present. 5. Mild tricuspid regurgitation present. 6. There is no pericardial effusion. CRANBERRY SORTER: Bren Patton RDCS
== END | disposition home or self-care (01) ==
LOC: RADECHMAIN 14:39
PROVIDERS: ATTEND Family Medicine
DX: I08.1 Rheumatic disorders of both mitral and tricuspid valves (principal); I11.9 Hypertensive heart disease without heart failure
CPT/HCPCS: 93306

== ENCOUNTER → 2021-03-03 | Outpatient (CLI) | payer MEDICARE ==
[2021-03-03 14:07] LABS: Appearance,Urine Clear (Clear); Bacteria,Urine Rare /hpf; Bilirubin,Urine Negative (Negative); Blood,Urine Negative (Negative); Color,Urine Yellow; Glucose,Urine (UA) Negative (Negative); Ketones,Urine Negative (Negative); Leukocyte Esterase,Urine Moderate (Negative); Nitrite,Urine Negative (Negative); PH, Urine 6.5 (5.0-8.0); Protein,Urine 2+ (Negative); Specific Gravity,Urine 1.014 (1.001-1.035); Squamous Epithelial Cell,Urine 7 /hpf (0-4); Urobilinogen,Urine <2.0 mg/dL (<2.0); WBC,Urine 1 /hpf (0-5)
[2021-03-03 14:09] LABS: Creatinine,Urine Random 111.4 mg/dL; Protein/Creatinine Ratio,Urine 1.293
[2021-03-03 23:07] LABS: Basophils # (A) 0.08 X 10*3/uL (0.00-0.10); Basophils % (A) 1.1 %; Eosinophils # (A) 0.51 X 10*3/uL (0.04-0.35); Eosinophils % (A) 6.9 %; HCT 45.2 % (37.2-46.3); HGB 14.7 g/dL (12.0-15.0); Lymphocytes # (A) 2.34 X 10*3/uL (0.90-5.00); Lymphocytes % (A) 31.6 %; MCH 29.3 pg (27.0-32.0); MCHC 32.5 g/dL (32.0-37.0); Mean Platelet Volume 9.1 fL (9.5-12.2); Monocytes # (A) 0.72 X 10*3/uL (0.20-1.00); Monocytes % (A) 9.7 %; Neutrophils # (A) 3.72 X 10*3/uL (1.80-7.70); Neutrophils % (A) 50.3 %; Platelet Count 407 X 10*3/uL (140-440); RBC 5.02 X 10*6/uL (4.10-5.20); RDW 13.1 % (11.5-14.5)
[2021-03-04 19:01] LABS: % Iron Saturation 19.12 (12.00-45.00); African American GFR (CKD) 54.5 (60.0-200.0); Albumin 4.5 g/dL (3.80-4.90); Albumin/Globulin Ratio 1.96 (1.60-3.17); BUN/Creat Ratio 16.36 Ratio (12.00-20.00); Calcium 10.2 mg/dL (8.7-10.3); Globulin 2.3 g/dL (1.6-3.3); Magnesium 1.7 mg/dL (1.5-2.4); Phosphorus 3.4 mg/dL (2.4-5.1); Potassium 4.1 mmol/L (3.5-5.5); Total Bilirubin 0.4 mg/dL (0.2-1.2); Total Protein 6.8 g/dL (6.2-8.2); Uric Acid 5.6 mg/dL (2.9-7.7)
[2021-03-04 19:08] LABS: T4, Free (Free Thyroxine) 1.3 ng/dL (0.80-1.80)
== END | disposition home or self-care (01) ==
LOC: LABWHC1 13:27
PROVIDERS: ATTEND Internal Medicine Endocrinology, Diabetes & Metabolism
DX: E04.2 Nontoxic multinodular goiter (principal); N18.30 Chronic kidney disease, stage 3 unspecified; Z86.39 Personal history of other endocrine, nutritional and metabolic disease
CPT/HCPCS: 36415; 80053; 81001; 82306; 82570; 82728; 83540; 83550; 83735; 83970; 84100; 84156; 84439; 84443; 84550; 85025

== ENCOUNTER → 2021-07-21 | Outpatient (CLI) | payer MEDICARE ==
[2021-07-21 23:00] LABS: African American GFR (CKD) 54.5 (60.0-200.0); Albumin 4.2 g/dL (3.80-4.90); Albumin/Globulin Ratio 1.68 (1.60-3.17); Anion Gap 10.2 mmol/L (4.00-12.00); BUN/Creat Ratio 17.27 Ratio (12.00-20.00); Carbon Dioxide 24.8 mmol/L (21.6-31.8); Globulin 2.5 g/dL (1.6-3.3); Potassium 4.1 mmol/L (3.5-5.5); Total Bilirubin 0.5 mg/dL (0.2-1.2); Total Protein 6.7 g/dL (6.2-8.2)
[2021-07-21 23:10] LABS: T4, Free (Free Thyroxine) 1.4 ng/dL (0.80-1.80)
== END | disposition home or self-care (01) ==
LOC: LABWHC1 09:00
PROVIDERS: ATTEND Internal Medicine Endocrinology, Diabetes & Metabolism
DX: E04.2 Nontoxic multinodular goiter (principal); E21.3 Hyperparathyroidism, unspecified
CPT/HCPCS: 36415; 80053; 82306; 83970; 84439; 84443

== ENCOUNTER → 2021-07-30 | Outpatient (CLI) | payer MEDICARE ==
--- NOTE | 2021-08-01 19:15 | US ---
EXAMINATION TYPE: US thyroid st tissue head/neck DATE OF EXAM: 07/30/2021 COMPARISON: 08/04/2020 CLINICAL HISTORY: 80-year-old female E04.2 Nontoxic multinodular goiter. Follow up scan TECHNIQUE: Multiple sonographic images of the thyroid gland are obtained. FINDINGS: GLAND SIZE: Right Lobe: 4.0 x 1.2 x 2.4 cm Overall Parenchyma: heterogenous Left Lobe: 4.4 x 1.1 x 1.5 cm Overall Parenchyma: heterogeneous Isthmus Thickness: 0.9 cm NODULES RIGHT: # of nodules measured on right: 1 1. 1.4 X 1.2 x 1.2 cm, lower solid or almost completely solid, hyperechoic nodule, which is wider than tall, with smooth margins, without echogenic foci. Prior size: 1.5 x 1.2 x 1.1 cm LEFT: # of nodules measured on left: 0 Area noted previously inferior to left lobe appears to be a vessel. ISTHMUS: # of nodules measured in the isthmus: 0 Bilateral neck scanned, no evidence of lymphadenopathy. IMPRESSION: Solitary solid 1.4 cm, TR3 nodule within the right lobe remains unchanged.
== END | disposition home or self-care (01) ==
LOC: RADUSWWP 16:07
PROVIDERS: ATTEND Internal Medicine Endocrinology, Diabetes & Metabolism
DX: E04.1 Nontoxic single thyroid nodule (principal)
CPT/HCPCS: 76536

== ENCOUNTER → 2021-08-19 | Outpatient (CLI) | payer MEDICARE ==
--- NOTE | 2021-08-19 13:48 | XR ---
EXAMINATION TYPE: XR lumbosacral spine min 4V DATE OF EXAM: 08/19/2021 Comparison: None Clinical History: 80-year-old female Chronic LBP Findings: Degenerated dextroconvex scoliosis. Hypertrophic facet arthropathy throughout with moderate to advanc ed disc degenerative change throughout. Disc within the lower thoracic spine. Retrolisthesis L1-L2. Cholecystectomy clips. Atherosclerotic calcification splenic artery. Overall ve rtebral body heights appear maintained allowing for the spinal curvature. Baastrup's disease. Impression: Marked degenerated dextroconvex scoliosis. 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 No evident vertebral compression collapse..
== END | disposition home or self-care (01) ==
LOC: RADXRMAIN 10:47
PROVIDERS: ATTEND Family Medicine
DX: M43.16 Spondylolisthesis, lumbar region (principal); M48.26 Kissing spine, lumbar region; M41.86 Other forms of scoliosis, lumbar region
CPT/HCPCS: 72110

== ENCOUNTER → 2022-02-04 | Outpatient (CLI) | payer MEDICARE ==
[2022-02-04 14:39] LABS: African American GFR (CKD) 48.7 (60.0-200.0); Albumin 4.2 g/dL (3.8-4.9); Albumin/Globulin Ratio 1.5 (1.60-3.17); Anion Gap 11.7 mmol/L (10.00-18.00); BUN/Creat Ratio 12.75 Ratio (12.00-20.00); Blood Urea Nitrogen 15.3 mg/dL (9.0-27.0); Calcium 9.5 mg/dL (8.7-10.3); Carbon Dioxide 22.3 mmol/L (20.0-27.5); Globulin 2.8 g/dL (1.6-3.3); Non-African American GFR(CKD) 42.1 (60.0-200.0); Potassium 3.5 mmol/L (3.5-5.5); T4, Free (Free Thyroxine) 1.39 ng/dL (0.800-1.800); Total Bilirubin 0.3 mg/dL (0.30-1.20)
== END | disposition home or self-care (01) ==
LOC: LABWHC1 08:47
PROVIDERS: ATTEND Internal Medicine Endocrinology, Diabetes & Metabolism
DX: E04.2 Nontoxic multinodular goiter (principal); Z86.39 Personal history of other endocrine, nutritional and metabolic disease
CPT/HCPCS: 36415; 80053; 82306; 83970; 84439; 84443

== ENCOUNTER → 2022-07-28 | Outpatient (CLI) | payer MEDICARE ==
--- NOTE | 2022-07-28 13:59 | US ---
EXAMINATION TYPE: US thyroid st tissue head/neck DATE OF EXAM: 07/28/2022 COMPARISON: Prior thyroid ultrasound 2020 CLINICAL HISTORY: E04.2 NONTOXIC MULTINODULAR GOITER. Follow up thyroid nodule. GLAND SIZE: Right Lobe: 4.3 x 1.6 x 2.1 cm Overall Parenchyma: homogenous Left Lobe: 4.3 x 1.2 x 1.3 cm Overall Parenchyma: homogeneous Isthmus Thickness: 0.7 cm NODULES RIGHT: # of nodules measured on right: 1 1. 1.4 X 1.1 x 1.2 cm, lower lateral, solid or almost completely solid, hyperechoic nodule, which i s wider than tall, with smooth margins, without echogenic foci. Prior size: 1.4 x 1.2 x 1.2 cm LEFT: # of nodules measured on left: 0 ISTHMUS: # of nodules measured in the isthmus: 1 1. 0.5 X 0.5 x 0.5 cm cystic or almost completely cystic, hypoechoic nodule, which is wider than ta ll, with smooth margins, without echogenic foci. Prior size: no prior Bilateral neck scanned, no evidence of lymphadenopathy. Homogeneous somewhat small size thyroid with stable hyperechoic solid nodule right thyroid lobe. IMPRESSION: As above. No significant new solid nodules.
[2022-07-28 19:11] LABS: African American GFR (CKD) 43.8 (60.0-200.0); Albumin 4.3 g/dL (3.8-4.9); Albumin/Globulin Ratio 1.87 (1.60-3.17); Anion Gap 12.2 mmol/L (10.00-18.00); BUN/Creat Ratio 14.12 Ratio (12.00-20.00); Blood Urea Nitrogen 18.5 mg/dL (9.0-27.0); Calcium 9.9 mg/dL (8.7-10.3); Carbon Dioxide 24.2 mmol/L (20.0-27.5); Globulin 2.3 g/dL (1.6-3.3); Non-African American GFR(CKD) 37.8 (60.0-200.0); Potassium 4.1 mmol/L (3.5-5.5); T4, Free (Free Thyroxine) 1.22 ng/dL (0.800-1.800); Total Bilirubin 0.5 mg/dL (0.30-1.20); Total Protein 6.6 g/dL (6.2-8.2)
== END | disposition home or self-care (01) ==
LOC: RADUSWWP 13:22
PROVIDERS: ATTEND Internal Medicine Endocrinology, Diabetes & Metabolism
DX: E04.2 Nontoxic multinodular goiter (principal)
CPT/HCPCS: 76536; 80053; 82306; 83970; 84439; 84443

== ENCOUNTER → 2022-10-26 | Outpatient (CLI) | payer MEDICARE ==
[2022-10-26 14:53] LABS: Chol/HDL Ratio 2.75 Ratio; LDL Cholesterol,Calculated 75.5 mg/dL (0.0-131.0)
== END | disposition home or self-care (01) ==
LOC: LABWHC1 09:26
PROVIDERS: ATTEND Family Medicine
DX: E78.5 Hyperlipidemia, unspecified (principal)
CPT/HCPCS: 36415; 80061

== ENCOUNTER → 2023-08-17 | Outpatient (CLI) | payer MEDICARE ==
[2023-08-17 17:00] LABS: T4, Free (Free Thyroxine) 1.13 ng/dL (0.80-1.80)
== END | disposition home or self-care (01) ==
LOC: LABWHC1 11:17
PROVIDERS: ATTEND Internal Medicine Endocrinology, Diabetes & Metabolism
DX: E21.3 Hyperparathyroidism, unspecified (principal)
CPT/HCPCS: 36415; 84439; 84443

== ENCOUNTER → 2023-09-08 | Outpatient (CLI) | payer MEDICARE ==
--- NOTE | 2023-09-11 08:02 | US ---
EXAMINATION TYPE: US thyroid st tissue head/neck DATE OF EXAM: 09/08/2023 COMPARISON: Multiple US's, most recent dated 07/28/2022 CLINICAL INDICATION: Female, 82 years old with history of E04.1 SINGLE THYROID NODULE; GLAND SIZE: Right Lobe: 4.5 x 1.7 x 1.7 cm Overall Parenchyma: homogeneous Left Lobe: 5.2 x 1.8 x 1.8 cm Overall Parenchyma: homogeneous Isthmus Thickness: 0.8 cm NODULES RIGHT: # of nodules measured on right: 1 1. 1.4 X 1.3 x 1.2 cm, lower mid, solid or almost completely solid, isoechoic nodule, which is wide r than tall, with smooth margins, without echogenic foci. Prior size: 1.4 x 1.2 x 1.1 cm LEFT: # of nodules measured on left: 0 ISTHMUS: # of nodules measured in the isthmus: 1 1. 0.6 X 0.6 x 0.6 cm solid or almost completely solid, hypoechoic nodule, which is wider than tall , with smooth margins, without echogenic foci. Prior size: 0.5 x 0.5 x 0.5 cm Bilateral neck scanned, no evidence of lymphadenopathy. IMPRESSION: 1. Moderately suspicious nodule right lobe thyroid. Consider follow-up 2017 ACR TI-RADS LEVEL: TR-RADS 3 - Mildly Suspicious: Follow if > 1.5 cm, FNA if > 2.5 cm *Highest TI-RADS level nodule reported
== END | disposition home or self-care (01) ==
LOC: RADUSWWP 15:32
PROVIDERS: ATTEND Internal Medicine Endocrinology, Diabetes & Metabolism
DX: E04.1 Nontoxic single thyroid nodule (principal); N39.9 Disorder of urinary system, unspecified
CPT/HCPCS: 76536

== ENCOUNTER → 2023-09-08 | Outpatient (CLI) | payer MEDICARE ==
--- NOTE | 2023-09-08 16:13 | US ---
EXAMINATION TYPE: US kidneys/renal and bladder DATE OF EXAM: 09/08/2023 COMPARISON: US dated 07/07/2020 CLINICAL INDICATION: Female, 82 years old with history of N39.9 DISORDER OF URINARY SYSTEM, UNSPECIFI ED; EXAM MEASUREMENTS: Right Kidney: 11.6 x 4.7 x 4.4 cm Left Kidney: 10.3 x 6.6 x 5.7 cm Right Kidney: multiple cysts, largest measures 2.2 x 2.2 x 2.3 cm Left Kidney: multiple cysts, largest measures 2.5 x 2.4 x 2.5 cm Bladder: wnl Bilateral Jets seen: Yes There is no evidence for hydronephrosis at this point in time. No nephrolithiasis is seen. No preston s are identified. The urinary bladder is anechoic. Bilateral ureteral jets are seen. IMPRESSION: 1. Multiple simple cyst within the kidneys bilaterally. 2. No evidence of hydronephrosis.
== END | disposition home or self-care (01) ==
LOC: RADUSWWP 15:34
PROVIDERS: ATTEND Urology
DX: N28.1 Cyst of kidney, acquired (principal); N39.9 Disorder of urinary system, unspecified
CPT/HCPCS: 76770

== ENCOUNTER → 2024-09-06 | Outpatient (CLI) | payer MEDICARE ==
--- NOTE | 2024-09-06 09:58 | US ---
EXAMINATION TYPE: US thyroid st tissue head/neck DATE OF EXAM: 09/06/2024 COMPARISON: Multiple thyroid ultrasounds with the most recent 09/08/2023 CLINICAL INDICATION: Female, 83 years old with history of E04.1 NONTOXIC SINGLE THYROID NODULE; F/U N odules TECHNIQUE: Grayscale and color Doppler imaging of the thyroid gland. FINDINGS: GLAND SIZE: Right Lobe: 4.1 x 1.9 x 1.3 cm Overall Parenchyma: homogeneous Left Lobe: 3.7 x 1.4 x 1.6 cm Overall Parenchyma: homogeneous Isthmus Thickness: 0.4 cm NODULES RIGHT: # of nodules measured on right: 1 1. 1.4 X 1.4 x 1.1 cm, lower mid, solid or almost completely solid, isoechoic nodule, which is wide r than tall, with smooth margins, without echogenic foci. TR 3 Prior size: 1.4 x 1.3 x 1.2 cm LEFT: # of nodules measured on left: 0 ISTHMUS: # of nodules measured in the isthmus: 1 1. 0.4 X 0.4 x 0.3 cm solid or almost completely solid, hypoechoic nodule, which is wider than tall , with smooth margins, without echogenic foci. TR 4 Prior size: 0.6 x 0.5 x 0.6 cm Bilateral neck scanned, no evidence of lymphadenopathy. Stable nodules. IMPRESSION: Stable thyroid nodules. No new or enlarging there are nodules. [facility], , 09/06/2024 9:55 AM
== END | disposition home or self-care (01) ==
LOC: RADUSWWP 06:55
PROVIDERS: ATTEND Internal Medicine Endocrinology, Diabetes & Metabolism
DX: E04.2 Nontoxic multinodular goiter (principal)
CPT/HCPCS: 76536

== ENCOUNTER → 2024-09-06 | Outpatient (CLI) | payer MEDICARE ==
--- NOTE | 2024-09-06 09:30 | BD ---
EXAMINATION TYPE: Axial Bone Density DATE OF EXAM: 09/06/2024 CLINICAL HISTORY: 83 years old Female. ICD-10 CODE: N95.1 MENOPAUSAL STATE Height: 61.2 in Weight: 148 lbs pt has had lt ankle and rt knee fx, unknown age EXAM MEASUREMENTS: Bone mineral densitometry was performed using the [employer] System. Bone mineral density as measured about the Lumbar spine is: ----- L1-L4(G/cm2): 1.423 T Score Values are as follows: ----- L1: 3.2 ----- L2: 0.3 ----- L3: 0.2 ----- L4: 3.5 ----- L1-L4: 2.0 Z Score Values are as follows: ----- L1: 5.0 ----- L2: 2.2 ----- L3: 2.0 ----- L4: 5.3 ----- L1-L4: 3.9 Bone mineral density has: Decreased -17.6% since study of: 12/19/2019 Bone mineral density about the R hip (g/cm2): 0.793 Bone mineral density about the L hip (g/cm2): 0.866 T Score values are as follows: -----R Neck: -1.7 -----L Neck: -1.2 -----R Total: -1.7 -----L Total: -1.1 Z Score values are as follows: -----R Neck: 0.6 -----L Neck: 1.1 -----R Total: 0.5 -----L Total: 1.1 Bone mineral density has: Decreased -11.2% since study of: 12/19/2019 FRAX%s: The graph provided illustrates a 21.1% chance for a major osteoporotic fx and a 5.5% chance f or the hips probability for fx in 10 years time. IMPRESSION: Osteopenia (T Score between -2.5 and -1). There is slightly increased risk of fracture and the patient may be considered for treatment. Re-Screen 2-5 years. NOTE: T-SCORE=SD OF THE YOUNG ADULT MEAN. [facility], , 09/06/2024 9:27 AM
[2024-09-06 15:37] LABS: ALT 12 U/L (8-44); AST 22 U/L (13-35); Albumin 4.4 g/dL (3.8-4.9); Albumin/Globulin Ratio 1.69 Ratio (1.60-3.17); Alkaline Phosphatase 79 U/L (41-126); BUN/Creat Ratio 17.86 Ratio (12.00-20.00); Calcium 10.3 mg/dL (8.7-10.3); Chloride 106 mmol/L (96-109); Globulin 2.6 g/dL (1.6-3.3); Glucose 107 mg/dL (70-110); Potassium 4.2 mmol/L (3.5-5.5); Sodium 142 mmol/L (135-145); T4, Free (Free Thyroxine) 1.26 ng/dL (0.80-1.80); Total Bilirubin 0.4 mg/dL (0.3-1.2)
--- NOTE | 2024-09-09 10:15 | MM ---
Reason for Exam: Screening (asymptomatic). Last mammogram was performed 4 year(s) and 8 month(s) ago. Patient History: Menarche at age 15. First Full-Term at age 33. Late child-bearing (after 29). Hysterectomy at age 60. Postmenopausal. Endometrial cancer, age 60. Mother had breast cancer, age 70. Risk Values: Lucille 5 year model risk: 2.6%. NCI Lifetime model risk: 2.9%. Prior Study Comparison: 04/26/2018 Bilateral Screening Mammogram, [facility]. 10/29/2018 Bilateral Diagnostic Mammogram, [facility]. 12/19/2019 Bilateral Screening Mammogram, [facility]. Tissue Density: The breasts are heterogeneously dense, which may obscure small masses. Findings: Analyzed By CAD. Right breast: There is no suspicious group of microcalcifications or new suspicious mass. Left breast: There is no suspicious group of microcalcifications or new suspicious mass. Overall Assessment: Negative, BI-RAD 1 Management: Screening Mammogram of both breasts in [address] [facility] will attempt to contact patient to return for supplemental views and ultrasound if indicated. Patient should continue monthly self-breast exams. A clinical breast exam by your physician is recommended on an annual basis. This exam should not preclude additional follow-up of suspicious palpable abnormalities. Note on Lucille scores and lifetime risk: 1. A Lucille score greater than 3% is considered moderate risk. If this is the case, consider specialist referral to assess eligibility for a risk reducing agent. 2. If overall lifetime risk for the development of breast cancer is 20% or higher, the patient may qualify for future screening with alternating mammogram and breast MRI. [facility], , 09/09/2024 10:12 AM. Electronically signed and approved by: Angel Lundy DO
== END | disposition home or self-care (01) ==
LOC: RADMAMWWP 06:52
PROVIDERS: ATTEND Family Medicine
CPT/HCPCS: 77063; 77067; 77080; 80053; 84439; 84443

== ENCOUNTER → 2025-02-26 | Outpatient (CLI) | payer MEDICARE ==
[2025-02-26 15:55] LABS: T4, Free (Free Thyroxine) 1.23 ng/dL (0.80-1.80)
== END | disposition home or self-care (01) ==
LOC: LABWHC1 10:21
PROVIDERS: ATTEND Internal Medicine Endocrinology, Diabetes & Metabolism
DX: E04.2 Nontoxic multinodular goiter (principal)
CPT/HCPCS: 36415; 84439; 84443